=== PATIENT | female | born 1990 | race Two or more races ===

== ENCOUNTER 2017-10-31 13:39 | Inpatient (IN) | payer OTHER ==
[2017-10-31 15:29] VITALS: BMI 23.3
--- NOTE | 2017-10-31 19:56 | HP ---
COWS - Scale Resting Pulse: 2= [place] 101-120 Sweatin= Chills/Flushing Restless Observation: 3= Extraneous Movement Pupil Size: 0= Normal to Room Light Bone or Joint Aches: 1= Mild Discomfort Runny Nose/ Eye Tearin= Runny Nose/Eyes GI Upset > 30mins: 3= Vomiting/Diarrhea Tremor Observation: 1= Tremor [place], Not Seen Yawning Observation: 0= None Anxiety or Irritability: 1=Feels Anxious/Irritable Goose Flesh Skin: 3=Piloerection COWS Score: 17 Admission ROS S - HPI Chief Complaint: " I am here to here get better, I need someone ot belive in me, is the first time I am doing this." Allergies/Adverse Reactions: Allergies Allergy/AdvReac Type Severity Reaction Status Date / Time mushroom Allergy Intermediate Vomiting Verified 10/31/17 17:30 History of Present Illness: 26 yo female with hx of heroin (paranasal) and nicotine dependence. PMHX: asthma , diverticulitis, depression, anxiety, insomnia. Denies hx of seizures or suicide attempts. Denies suicidal / homicidal ideation. Denies hx of suicide attempts. Reports longest period of sobriety 10 months. Reports no prior detox treatment. Exam Limitations: No Limitations - Ebola screening Have you traveled outside of the country in the last 21 days: No Have you had contact with anyone from an Ebola affected area: No Have you been sick,other than usual withdrawal symptoms: No Do you have a fever: No - Review of Systems Constitutional: Chills, Loss of Appetite, Changes in sleep EENT: reports: Throat Pain Respiratory: reports: Cough, Wheezing Cardiac: reports: No Symptoms Reported Neuro: reports: Headache, Dizziness Endocrine: reports: Increased Thirst Hematology: reports: No Symptoms Reported Psychiatric: reports: Orientated x3, Anxious Other Systems: Reviewed and Negative Patient History - Patient Medical History Hx Anemia: No Hx Asthma: Yes Hx Chronic Obstructive Pulmonary Disease (COPD): No Hx Cancer: No Hx Cardiac Disorders: No Hx Congestive Heart Failure: No Hx Hypertension: No Hx Hypercholesterolemia: No Hx Pacemaker: No HX Cerebrovascular Accident: No Hx Seizures: No Hx Dementia: No Hx Diabetes: No Hx Gastrointestinal Disorders: No Hx Liver Disease: No Hx Genitourinary Disorders: No Hx Sexually Transmitted Disorders: No Hx Renal Disease (ESRD): No Hx Thyroid Disease: No Hx Human Immunodeficiency Virus (HIV): No Hx Hepatitis C: No Hx Depression: Yes Hx Suicide Attempt: No Hx Bipolar Disorder: No Hx Schizophrenia: No - Patient Surgical History Past Surgical History: Yes Hx Neurologic Surgery: No Hx Cataract Extraction: No Hx Cardiac Surgery: No Hx Lung Surgery: No Hx Breast Surgery: Yes (BREAST MAS-2007) Hx Breast Biopsy: No Hx Abdominal Surgery: No Hx Appendectomy: No Hx Cholecystectomy: No Hx Genitourinary Surgery: No Hx Section: No Hx Orthopedic Surgery: No Anesthesia Reaction: No - PPD History Previous Implant?: Yes Documented Results: Negative w/o proof PPD to be Administered?: Yes - Reproductive History Patient is a Female of Child Bearing Age (11 -55 yrs old): Yes Last Menstrual Period: 09/26/17 Patient : No - Smoking Cessation Smoking history: Current every day smoker Have you smoked in the past 12 months: Yes Aproximately how many cigarettes per day: 4 Hx Chewing Tobacco Use: No Initiated information on smoking cessation: Yes 'Breaking Loose' booklet given: 10/31/17 - Substance & Tx. History Hx Alcohol Use: No Hx Substance Use: No Substance Use Type: Cocaine, Heroin Hx Substance Use Treatment: No - Substances Abused Heroin Route: Inhalation Frequency: Daily Amount used: 3 BAGS Age of first use: 23 Date of Last Use: 10/29/17 Cocaine Route: Smoking Frequency: Daily Amount used: 1 BAG Age of first use: 26 Date of Last Use: 10/28/17 Family Disease History - Family Disease History Family Disease History: Other: Grandparent (alive, schizo, alcoholism ), Father (alive, alcoholism and diverticulitis ), Mother (alive and well, obesity ) Admission Physical Exam S - Vital Signs Vital Signs: Vital Signs - 24 hr 10/31/17 15:22 Temperature 97.1 F L Pulse Rate 105 H Respiratory 20 Rate Blood Pressure 149/119 - Physical General Appearance: Yes: Appropriately Dressed, Mild Distress, Thin, Sweating, Anxious HEENTM: Yes: EOMI, Hearing grossly Normal, Normal ENT Inspection, Normocephalic , Normal Voice, TAMICA, Pharynx Normal, Tm's normal, Other (chelithis) Respiratory: Yes: Chest Non-Tender, Wheezing, Other (cough) Neck: Yes: No masses,lesions,Nodules, Trachea in good position Breast: Yes: Breast Exam Deferred Cardiology: Yes: Regular Rhythm, Tachycardia Abdominal: Yes: Normal Bowel Sounds, Non Tender, Flat, Soft Genitourinary: Yes: Within Normal Limits Back: Yes: Normal Inspection Musculoskeletal: Yes: Back pain Extremities: Yes: Normal Capillary Refill, Normal Inspection, Normal Range of Motion, Non-Tender 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 NML intact, Fully Oriented, Alert, Motor Strength 5/5, Normal Response, Depressed Affect Integumentary: Yes: Normal Color, Warm, Diaphoresis Lymphatic: Yes: Within Normal Limits - Diagnostic (1) Asthma Current Visit: Yes Status: Acute Qualifiers: Asthma severity: severe Asthma persistence: persistent Asthma complication type: with acute exacerbation Qualified Code(s): J45.51 - Severe persistent asthma with (acute) exacerbation (2) Wheezing Current Visit: Yes Status: Acute (3) Elevated blood pressure reading without diagnosis of hypertension Current Visit: Yes Status: Acute (4) Dehydration Current Visit: Yes Status: Acute (5) Depression Current Visit: Yes Status: Acute Qualifiers: Depression Type: dysthymia Qualified Code(s): F34.1 - Dysthymic disorder (6) Diverticulitis Current Visit: Yes Status: Chronic Cleared for Admission [facility] - Detox or Rehab [facility] Level of Care: Medically Managed Detox Regimen/Protocol: Methadone [facility] Breath Alcohol Content Breath Alcohol Content: 0 Urine Pregancy Test - Result Urine Test Results: Negative- NO Line Present Urine Drug Screen - Results Drug Screen Negative: No Urine Drug Screen Results: KOFFI-Cocaine, OPI-Opiates
[2017-10-31] MEDS ORDERED: ALBUTEROL SO4 18 GM HFA INHALER IH SCH ×2 (20:00→22:00)
[2017-10-31] MEDS ORDERED: MAG HYDROX/AL HYDROX/SIMETH 30 ML UNIT-DOSE CUP PO PRN (20:07)
[2017-10-31] MEDS ORDERED: NICOTINE POLACRILEX 2 MG GUM BC PRN (20:07)
[2017-10-31] MEDS ORDERED: MAGNESIUM HYDROX 2400MG/30ML ORAL SUSPENSION 30 ML CUP PO PRN (20:07)
[2017-10-31] MEDS ORDERED: P-EPHED 60MG/TRIPROLIDI 2.5MG TABLET PO PRN (20:07)
[2017-10-31] MEDS ORDERED: MAGNESIUM CITRATE 300 ML BOTTLE PO PRN (20:07)
[2017-10-31] MEDS ORDERED: METHADONE HCL 10 MG TABLET (FOR DETOX USE ONLY) PO ONE ×2 (20:07→23:00)
[2017-10-31] MEDS ORDERED: LOPERAMIDE HCL 2 MG CAPSULE PO PRN (20:07)
[2017-10-31] MEDS: ALBUTEROL SO4 2.5/IPRATROPIUM 0.5 INH SOL 3 ML VIAL.NEB. NEB SCH (21:16)
[2017-10-31] MEDS: predniSONE 10 MG TABLET (UD) PO SCH (21:40)
[2017-10-31] MEDS: BUDESONIDE/FORMETEROL FUMARATE 160/4.5 mcg INHALER IH SCH (22:31)
[2017-10-31] MEDS: THIAMINE HCL 100 MG TABLET (FP) PO SCH (22:34)
[2017-10-31 23:21] LABS: URINE APPEARANCE CLOUDY; URINE BILIRUBIN NEGATIVE (<2.0 mg/dL); URINE COLOR YELLOW; URINE GLUCOSE (UA) NEGATIVE (NEGATIVE); URINE KETONE NEGATIVE (NEGATIVE); URINE LEUK ESTERASE NEGATIVE (NEGATIVE); URINE NITRITE NEGATIVE (NEGATIVE); URINE PROTEIN NEGATIVE (NEGATIVE); URINE UROBILINOGEN NEGATIVE mg/dL (0.2-1.0)
[2017-11-01] MEDS: ALBUTEROL SO4 2.5/IPRATROPIUM 0.5 INH SOL 3 ML VIAL.NEB. NEB SCH ×5 (00:20→19:48)
[2017-11-01] MEDS: ALBUTEROL SO4 18 GM HFA INHALER IH PRN ×2 (02:59→10:34)
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
[2017-11-01] MEDS ORDERED: METHADONE HCL 10 MG TABLET (FOR DETOX USE ONLY) PO ONE (10:00)
[2017-11-01 10:21] LABS: HEMATOCRIT 42.9 % (32.4-45.2); HEMOGLOBIN 14.5 GM/dL (10.7-15.3); MCH 29.2 pg (25.7-33.7); MCHC 33.8 g/dl (32.0-36.0); MEAN CELL VOLUME 86.4 fl (80-96); MEAN PLT VOLUME 8.9 fl (7.5-11.1); PLATELET COUNT 269 K/MM3 (134-434); RBC 4.96 M/mm3 (3.60-5.2); RDW 12.7 % (11.6-15.6)
[2017-11-01 10:27] LABS: CHLORIDE 104 mmol/L (98-107); POTASSIUM 4.8 mmol/L (3.5-5.1); SODIUM 140 mmol/L (136-145)
[2017-11-01] MEDS: diazePAM 5 MG TABLET PO PRN (10:33)
[2017-11-01] MEDS: PRENATAL VITAMINS W/ FOLIC ACID TABLET (FP) PO SCH (10:33)
[2017-11-01] MEDS: NICOTINE 14 MG/24 HOURS TOPICAL PATCH TD SCH (10:34)
[2017-11-01] MEDS: predniSONE 10 MG TABLET (UD) PO SCH (10:34)
[2017-11-01] MEDS: BUDESONIDE/FORMETEROL FUMARATE 160/4.5 mcg INHALER IH SCH ×2 (10:34→22:22)
[2017-11-01 10:37] LABS: ALBUMIN 3.9 g/dl (3.4-5.0); ALK PHOS 84 U/L (45-117); ANION GAP 10 (8-16); BILIRUBIN,TOTAL 0.4 mg/dL (0.2-1.0); BLOOD UREA NITROGEN 11 mg/dL (7-18); CALCIUM 9.6 mg/dL (8.5-10.1); CO2 26 mmol/L (21-32); CREATININE 0.8 mg/dL (0.55-1.02); GLUCOSE,RANDOM 131 mg/dL (74-106); SGOT/AST 18 U/L (15-37); SGPT/ALT 19 U/L (12-78); TOT PROT 7.3 g/dl (6.4-8.2)
[2017-11-01] MEDS: guaiFENesin/D-METHORPHAN HB 10 ML UNIT-DOSE CUPS PO PRN (10:38)
--- NOTE | 2017-11-01 12:21 | PN ---
[facility] COWS - Scale Resting Pulse: 0= [place] 80 or Below Sweatin= Chills/Flushing Restless Observation: 1= Difficult to Sit Still Pupil Size: 1= Pupils >than Normal Bone or Joint Aches: 2= Severe Diffuse Aches Runny Nose/ Eye Tearin= Runny Nose/Eyes GI Upset > 30mins: 3= Vomiting/Diarrhea Tremor Observation of Outstretched Hands: 2= Slight Tremor Visible Yawning Observation: 1= 1-2x During Session Anxiety or Irritability: 2=Irritable/Anxious Goose Flesh Skin: 0=Smooth Skin COWS Score: 15 S Progress Note (SOAP) Subjective: ALERT,IRRITABLE,ANXIOUS,INTERRUPTED SLEEP,PAIN IN THE BODY AN BACK Objective: 11/01/17 12:17 Vital Signs Temperature 98.1 F 11/01/17 09:37 Pulse Rate 113 H 11/01/17 09:37 Respiratory Rate 16 11/01/17 09:37 Blood Pressure 119/93 11/01/17 09:37 O2 Sat by Pulse Oximetry (%) EKG NSR WITH SINUS ARRHYTHMIA NORMAL ECG PROLONG QT 412/431 NO CHEST PAIN,NO SOB,NO DIZZINESS Laboratory Last Values WBC 9.0 K/mm3 (4.0-10.0) 11/01/17 07:00 RBC 4.96 M/mm3 (3.60-5.2) 11/01/17 07:00 Hgb 14.5 GM/dL (10.7-15.3) 11/01/17 07:00 Hct 42.9 % (32.4-45.2) 11/01/17 07:00 MCV 86.4 fl (80-96) 11/01/17 07:00 MCH 29.2 pg (25.7-33.7) 11/01/17 07:00 MCHC 33.8 g/dl (32.0-36.0) 11/01/17 07:00 RDW 12.7 % (11.6-15.6) 11/01/17 07:00 Plt Count 269 K/MM3 (134-434) 11/01/17 07:00 MPV 8.9 fl (7.5-11.1) 11/01/17 07:00 Sodium 140 mmol/L (136-145) 11/01/17 07:00 Potassium 4.8 mmol/L (3.5-5.1) 11/01/17 07:00 Chloride 104 mmol/L (98-107) 11/01/17 07:00 Carbon Dioxide 26 mmol/L (21-32) 11/01/17 07:00 Anion Gap 10 (8-16) 11/01/17 07:00 BUN 11 mg/dL (7-18) 11/01/17 07:00 Creatinine 0.8 mg/dL (0.55-1.02) 11/01/17 07:00 Creat Clearance w eGFR > 60 (>60) 11/01/17 07:00 Random Glucose 131 mg/dL (74-106) H 11/01/17 07:00 Calcium 9.6 mg/dL (8.5-10.1) 11/01/17 07:00 Total Bilirubin 0.4 mg/dL (0.2-1.0) 11/01/17 07:00 AST 18 U/L (15-37) 11/01/17 07:00 ALT 19 U/L (12-78) 11/01/17 07:00 Alkaline Phosphatase 84 U/L (45-117) 11/01/17 07:00 Total Protein 7.3 g/dl (6.4-8.2) 11/01/17 07:00 Albumin 3.9 g/dl (3.4-5.0) 11/01/17 07:00 Urine Color Yellow 10/31/17 23:00 Urine Appearance Cloudy 10/31/17 23:00 Urine pH 7.0 (5.0-8.0) 10/31/17 23:00 Ur Specific [place] 1.019 (1.001-1.035) 10/31/17 23:00 Urine Protein Negative (NEGATIVE) 10/31/17 23:00 Urine Glucose (UA) Negative (NEGATIVE) 10/31/17 23:00 Urine Ketones Negative (NEGATIVE) 10/31/17 23:00 Urine Blood Negative (NEGATIVE) 10/31/17 23:00 Urine Nitrite Negative (NEGATIVE) 10/31/17 23:00 Urine Bilirubin Negative (<2.0 mg/dL) 10/31/17 23:00 Urine Urobilinogen Negative mg/dL (0.2-1.0) 10/31/17 23:00 Ur Leukocyte Esterase Negative (NEGATIVE) 10/31/17 23:00 RPR Titer Nonreactive (NONREACTIVE) 11/01/17 07:00 Assessment: 11/01/17 12:20 WITHDRAWAL SYMPTOM Plan: CONTINUE DETOX
[2017-11-01] MEDS: IBUPROFEN 400 MG TABLET (FP) PO PRN (15:21)
[2017-11-01] MEDS: MENTHOL/PHENOL 1 EACH UD MM PRN (15:22)
[2017-11-01] MEDS: THIAMINE HCL 100 MG TABLET (FP) PO SCH (22:22)
[2017-11-01] MEDS: cloNIDine HCL 0.1 MG TABLET PO SCH (22:22)
[2017-11-01] MEDS: CYCLOBENZAPRINE HCL 10 MG TABLET (FP) PO PRN (22:22)
[2017-11-01] MEDS: MELATONIN 5 MG TABLETS PO PRN (22:23)
[2017-11-01] MEDS: hydrOXYzine PAMOATE 50 MG CAPSULE (FP) PO PRN (22:25)
[2017-11-02] MEDS: ALBUTEROL SO4 2.5/IPRATROPIUM 0.5 INH SOL 3 ML VIAL.NEB. NEB SCH ×6 (00:30→20:50)
[2017-11-02] MEDS: guaiFENesin/D-METHORPHAN HB 10 ML UNIT-DOSE CUPS PO PRN ×2 (03:49→10:22)
--- NOTE | 2017-11-02 08:23 | EKG ---
Test Reason : Blood Pressure : / mmHG Vent. Rate : 066 BPM Atrial Rate : 066 BPM P-R Int : 132 ms QRS Dur : 088 ms QT Int : 412 ms P-R-T Axes : 062 060 033 degrees QTc Int : 431 ms NORMAL SINUS RHYTHM WITH SINUS ARRHYTHMIA NORMAL ECG NO PREVIOUS ECGS AVAILABLE Confirmed by KELECHI CATALAN MD ([id number]) on 11/02/2017 8:23:14 AM Referred By: Confirmed By:KELECHI CATALAN MD
[2017-11-02] MEDS ORDERED: METHADONE HCL 5 MG TABLET (FOR DETOX USE ONLY) PO ONE (10:00)
[2017-11-02] MEDS: diazePAM 5 MG TABLET PO PRN (10:20)
[2017-11-02] MEDS: CYCLOBENZAPRINE HCL 10 MG TABLET (FP) PO PRN (10:20)
[2017-11-02] MEDS: cloNIDine HCL 0.1 MG TABLET PO SCH ×2 (10:20→22:29)
[2017-11-02] MEDS: PRENATAL VITAMINS W/ FOLIC ACID TABLET (FP) PO SCH (10:20)
[2017-11-02] MEDS: NICOTINE 14 MG/24 HOURS TOPICAL PATCH TD SCH (10:21)
[2017-11-02] MEDS: BUDESONIDE/FORMETEROL FUMARATE 160/4.5 mcg INHALER IH SCH ×2 (10:21→22:29)
[2017-11-02] MEDS: predniSONE 10 MG TABLET (UD) PO SCH (10:21)
--- NOTE | 2017-11-02 13:28 | PN ---
[facility] COWS - Scale Resting Pulse: 0= [place] 80 or Below Sweatin= Chills/Flushing Restless Observation: 3= Extraneous Movement Pupil Size: 1= Pupils >than Normal Bone or Joint Aches: 2= Severe Diffuse Aches Runny Nose/ Eye Tearin= Runny Nose/Eyes GI Upset > 30mins: 2= Nausea/Diarrhea Tremor Observation of Outstretched Hands: 2= Slight Tremor Visible Yawning Observation: 1= 1-2x During Session Anxiety or Irritability: 2=Irritable/Anxious Goose Flesh Skin: 0=Smooth Skin COWS Score: 16 S Progress Note (SOAP) Subjective: ALERT,IRRITABLE,ANXIOUS,INTERRUPTED SLEEP,PAIN IN THE BODY AND BACK Objective: 11/02/17 13:27 Vital Signs Temperature 97.1 F L 11/02/17 09:24 Pulse Rate 65 11/02/17 09:24 Respiratory Rate 16 11/02/17 09:24 Blood Pressure 106/58 11/02/17 09:24 O2 Sat by Pulse Oximetry (%) 11/02/17 13:27 Laboratory Last Values WBC 9.0 K/mm3 (4.0-10.0) 11/01/17 07:00 RBC 4.96 M/mm3 (3.60-5.2) 11/01/17 07:00 Hgb 14.5 GM/dL (10.7-15.3) 11/01/17 07:00 Hct 42.9 % (32.4-45.2) 11/01/17 07:00 MCV 86.4 fl (80-96) 11/01/17 07:00 MCH 29.2 pg (25.7-33.7) 11/01/17 07:00 MCHC 33.8 g/dl (32.0-36.0) 11/01/17 07:00 RDW 12.7 % (11.6-15.6) 11/01/17 07:00 Plt Count 269 K/MM3 (134-434) 11/01/17 07:00 MPV 8.9 fl (7.5-11.1) 11/01/17 07:00 Sodium 140 mmol/L (136-145) 11/01/17 07:00 Potassium 4.8 mmol/L (3.5-5.1) 11/01/17 07:00 Chloride 104 mmol/L (98-107) 11/01/17 07:00 Carbon Dioxide 26 mmol/L (21-32) 11/01/17 07:00 Anion Gap 10 (8-16) 11/01/17 07:00 BUN 11 mg/dL (7-18) 11/01/17 07:00 Creatinine 0.8 mg/dL (0.55-1.02) 11/01/17 07:00 Creat Clearance w eGFR > 60 (>60) 11/01/17 07:00 Random Glucose 131 mg/dL (74-106) H 11/01/17 07:00 Calcium 9.6 mg/dL (8.5-10.1) 11/01/17 07:00 Total Bilirubin 0.4 mg/dL (0.2-1.0) 11/01/17 07:00 AST 18 U/L (15-37) 11/01/17 07:00 ALT 19 U/L (12-78) 11/01/17 07:00 Alkaline Phosphatase 84 U/L (45-117) 11/01/17 07:00 Total Protein 7.3 g/dl (6.4-8.2) 11/01/17 07:00 Albumin 3.9 g/dl (3.4-5.0) 11/01/17 07:00 Urine Color Yellow 10/31/17 23:00 Urine Appearance Cloudy 10/31/17 23:00 Urine pH 7.0 (5.0-8.0) 10/31/17 23:00 Ur Specific [place] 1.019 (1.001-1.035) 10/31/17 23:00 Urine Protein Negative (NEGATIVE) 10/31/17 23:00 Urine Glucose (UA) Negative (NEGATIVE) 10/31/17 23:00 Urine Ketones Negative (NEGATIVE) 10/31/17 23:00 Urine Blood Negative (NEGATIVE) 10/31/17 23:00 Urine Nitrite Negative (NEGATIVE) 10/31/17 23:00 Urine Bilirubin Negative (<2.0 mg/dL) 10/31/17 23:00 Urine Urobilinogen Negative mg/dL (0.2-1.0) 10/31/17 23:00 Ur Leukocyte Esterase Negative (NEGATIVE) 10/31/17 23:00 RPR Titer Nonreactive (NONREACTIVE) 11/01/17 07:00 Assessment: 11/02/17 13:27 WITHDRAWAL SYMPTOM Plan: CONTINUE DETOX
[2017-11-02] MEDS: ARTIFICIAL TEARS (POLYVINYL ALCOHOL 1.4%) OPTH DROPS OU SCH ×2 (15:23→22:29)
[2017-11-02] MEDS: THIAMINE HCL 100 MG TABLET (FP) PO SCH (22:29)
[2017-11-02] MEDS: hydrOXYzine PAMOATE 50 MG CAPSULE (FP) PO PRN (22:31)
[2017-11-02] MEDS: MELATONIN 5 MG TABLETS PO PRN (22:31)
[2017-11-02] MEDS: ALBUTEROL SO4 18 GM HFA INHALER IH PRN (22:31)
[2017-11-03] MEDS: ALBUTEROL SO4 2.5/IPRATROPIUM 0.5 INH SOL 3 ML VIAL.NEB. NEB SCH ×5 (00:33→20:55)
[2017-11-03] MEDS: diazePAM 5 MG TABLET PO PRN ×2 (05:57→11:11)
[2017-11-03] MEDS: IBUPROFEN 400 MG TABLET (FP) PO PRN (05:57)
[2017-11-03] MEDS: ARTIFICIAL TEARS (POLYVINYL ALCOHOL 1.4%) OPTH DROPS OU SCH ×3 (06:02→22:21)
[2017-11-03] MEDS ORDERED: METHADONE HCL 5 MG TABLET (FOR DETOX USE ONLY) PO ONE (10:00)
[2017-11-03] MEDS: cloNIDine HCL 0.1 MG TABLET PO SCH ×2 (11:11→22:20)
[2017-11-03] MEDS: PRENATAL VITAMINS W/ FOLIC ACID TABLET (FP) PO SCH (11:11)
[2017-11-03] MEDS: BUDESONIDE/FORMETEROL FUMARATE 160/4.5 mcg INHALER IH SCH ×2 (11:12→22:21)
[2017-11-03] MEDS: ALBUTEROL SO4 18 GM HFA INHALER IH PRN (11:12)
[2017-11-03] MEDS: NICOTINE 14 MG/24 HOURS TOPICAL PATCH TD SCH (11:12)
[2017-11-03] MEDS: ACETAMINOPHEN 325 MG TABLET (FP) PO PRN ×2 (11:13→18:07)
--- NOTE | 2017-11-03 14:08 | PN ---
[facility] Progress Note (SOAP) Subjective: Sweating, nausea, interrupted sleep Objective: 11/03/17 14:05 Last Vital Signs Temp Pulse Resp BP Pulse Ox 97.7 F 88 20 119/77 11/03/17 13:56 11/03/17 13:56 11/03/17 13:56 11/03/17 13:56 Laboratory Tests 10/31/17 11/01/17 11/01/17 23:00 07:00 07:00 WBC 9.0 RBC 4.96 Hgb 14.5 Hct 42.9 MCV 86.4 MCH 29.2 MCHC 33.8 RDW 12.7 Plt Count 269 MPV 8.9 Sodium 140 Potassium 4.8 Chloride 104 Carbon Dioxide 26 Anion Gap 10 BUN 11 Creatinine 0.8 Creat Clearance w eGFR > 60 Random Glucose 131 H Calcium 9.6 Total Bilirubin 0.4 AST 18 ALT 19 Alkaline Phosphatase 84 Total Protein 7.3 Albumin 3.9 Urine Color Yellow Urine Appearance Cloudy Urine pH 7.0 Ur Specific [place] 1.019 Urine Protein Negative Urine Glucose (UA) Negative Urine Ketones Negative Urine Blood Negative Urine Nitrite Negative Urine Bilirubin Negative Urine Urobilinogen Negative Ur Leukocyte Esterase Negative RPR Titer 11/01/17 07:00 WBC RBC Hgb Hct MCV MCH MCHC RDW Plt Count MPV Sodium Potassium Chloride Carbon Dioxide Anion Gap BUN Creatinine Creat Clearance w eGFR Random Glucose Calcium Total Bilirubin AST ALT Alkaline Phosphatase Total Protein Albumin Urine Color Urine Appearance Urine pH Ur Specific [place] Urine Protein Urine Glucose (UA) Urine Ketones Urine Blood Urine Nitrite Urine Bilirubin Urine Urobilinogen Ur Leukocyte Esterase RPR Titer Nonreactive Labs reviewed Assessment: 11/03/17 14:05 Withdrawal symptoms Plan: Continue detox Encouraged PO hydration (water)
[2017-11-03] MEDS: MENTHOL/PHENOL 1 EACH UD MM PRN (15:43)
[2017-11-03] MEDS: guaiFENesin/D-METHORPHAN HB 10 ML UNIT-DOSE CUPS PO PRN (18:07)
[2017-11-03] MEDS: THIAMINE HCL 100 MG TABLET (FP) PO SCH (22:20)
[2017-11-03] MEDS: MELATONIN 5 MG TABLETS PO PRN (22:23)
[2017-11-04] MEDS: ARTIFICIAL TEARS (POLYVINYL ALCOHOL 1.4%) OPTH DROPS OU SCH ×3 (06:59→22:25)
[2017-11-04] MEDS: ALBUTEROL SO4 2.5/IPRATROPIUM 0.5 INH SOL 3 ML VIAL.NEB. NEB SCH ×5 (06:59→22:25)
--- NOTE | 2017-11-04 09:36 | PN ---
S Progress Note (SOAP) Subjective: ALERT,IRRITABLE,ANXIOUS,INTERRUPTED SLEEP, Objective: 11/04/17 09:36 Vital Signs Temperature 97.5 F L 11/04/17 07:13 Pulse Rate 80 11/04/17 07:13 Respiratory Rate 16 11/04/17 07:13 Blood Pressure 106/72 11/04/17 07:13 O2 Sat by Pulse Oximetry (%) Assessment: 11/04/17 09:36 WITHDRAWAL SYMPTOM Plan: CONTINUE DETOX,DISCHARGE IN AM
[2017-11-04] MEDS ORDERED: METHADONE HCL 10 MG TABLET (FOR DETOX USE ONLY) PO ONE (10:00)
[2017-11-04] MEDS: PRENATAL VITAMINS W/ FOLIC ACID TABLET (FP) PO SCH (10:27)
[2017-11-04] MEDS: BUDESONIDE/FORMETEROL FUMARATE 160/4.5 mcg INHALER IH SCH ×2 (10:27→22:39)
[2017-11-04] MEDS: NICOTINE 14 MG/24 HOURS TOPICAL PATCH TD SCH (10:27)
[2017-11-04] MEDS: cloNIDine HCL 0.1 MG TABLET PO SCH ×2 (10:27→22:09)
[2017-11-04] MEDS: IBUPROFEN 400 MG TABLET (FP) PO PRN ×2 (10:30→22:23)
[2017-11-04] MEDS: THIAMINE HCL 100 MG TABLET (FP) PO SCH (22:09)
[2017-11-04] MEDS: MELATONIN 5 MG TABLETS PO PRN (22:10)
[2017-11-04] MEDS: guaiFENesin/D-METHORPHAN HB 10 ML UNIT-DOSE CUPS PO PRN (22:24)
[2017-11-05] MEDS: ALBUTEROL SO4 2.5/IPRATROPIUM 0.5 INH SOL 3 ML VIAL.NEB. NEB SCH ×3 (00:30→08:30)
[2017-11-05] MEDS: IBUPROFEN 400 MG TABLET (FP) PO PRN (05:43)
[2017-11-05] MEDS: ARTIFICIAL TEARS (POLYVINYL ALCOHOL 1.4%) OPTH DROPS OU SCH (05:54)
[2017-11-05] MEDS ORDERED: METHADONE HCL 5 MG TABLET (FOR DETOX USE ONLY) PO ONE (06:00)
[2017-11-05 08:47] VITALS: BP 115/61; PULSE 99; TEMP 97.7
--- NOTE | 2017-11-05 08:57 | PN ---
S Progress Note (SOAP) Subjective: ALERT,NO COMPLAINT Objective: 11/05/17 08:54 Vital Signs Temperature 97.7 F 11/05/17 08:47 Pulse Rate 99 H 11/05/17 08:47 Respiratory Rate 18 11/05/17 08:47 Blood Pressure 115/61 11/05/17 08:47 O2 Sat by Pulse Oximetry (%) Assessment: 11/05/17 08:54 DETOX COMPLETED,NO WITHDRAWAL SYMPTOM Plan: DISCHARGE TODAY,FOLLOW UP WITH AFTER CARE PROGRAM ARRANGEMENT
--- NOTE | 2017-11-05 09:02 | DS ---
[facility] Detox Discharge Summary Admission Date: 10/31/17 Discharge Date: 11/05/17 - History Present History: Cocaine Dependence, Opioid Dependence Additional Comments: FOLLOW UP WITH AFTER CARE PROGRAM ARRANGEMENT Pertinent Past History: ASTHMA DEHYDRATION HISTORY OF DIVERTICULITIS - Physical Exam Results Vital Signs: Vital Signs Temperature 97.7 F 11/05/17 08:47 Pulse Rate 99 H 11/05/17 08:47 Respiratory Rate 18 11/05/17 08:47 Blood Pressure 115/61 11/05/17 08:47 O2 Sat by Pulse Oximetry (%) Pertinent Admission Physical Exam Findings: WITHDRAWAL SYMPTOM AND SIGN Vital Signs Temperature 97.7 F 11/05/17 08:47 Pulse Rate 99 H 11/05/17 08:47 Respiratory Rate 18 11/05/17 08:47 Blood Pressure 115/61 11/05/17 08:47 O2 Sat by Pulse Oximetry (%) Laboratory Last Values WBC 9.0 K/mm3 (4.0-10.0) 11/01/17 07:00 RBC 4.96 M/mm3 (3.60-5.2) 11/01/17 07:00 Hgb 14.5 GM/dL (10.7-15.3) 11/01/17 07:00 Hct 42.9 % (32.4-45.2) 11/01/17 07:00 MCV 86.4 fl (80-96) 11/01/17 07:00 MCH 29.2 pg (25.7-33.7) 11/01/17 07:00 MCHC 33.8 g/dl (32.0-36.0) 11/01/17 07:00 RDW 12.7 % (11.6-15.6) 11/01/17 07:00 Plt Count 269 K/MM3 (134-434) 11/01/17 07:00 MPV 8.9 fl (7.5-11.1) 11/01/17 07:00 Sodium 140 mmol/L (136-145) 11/01/17 07:00 Potassium 4.8 mmol/L (3.5-5.1) 11/01/17 07:00 Chloride 104 mmol/L (98-107) 11/01/17 07:00 Carbon Dioxide 26 mmol/L (21-32) 11/01/17 07:00 Anion Gap 10 (8-16) 11/01/17 07:00 BUN 11 mg/dL (7-18) 11/01/17 07:00 Creatinine 0.8 mg/dL (0.55-1.02) 11/01/17 07:00 Creat Clearance w eGFR > 60 (>60) 11/01/17 07:00 Random Glucose 131 mg/dL (74-106) H 11/01/17 07:00 Calcium 9.6 mg/dL (8.5-10.1) 11/01/17 07:00 Total Bilirubin 0.4 mg/dL (0.2-1.0) 11/01/17 07:00 AST 18 U/L (15-37) 11/01/17 07:00 ALT 19 U/L (12-78) 11/01/17 07:00 Alkaline Phosphatase 84 U/L (45-117) 11/01/17 07:00 Total Protein 7.3 g/dl (6.4-8.2) 11/01/17 07:00 Albumin 3.9 g/dl (3.4-5.0) 11/01/17 07:00 Urine Color Yellow 10/31/17 23:00 Urine Appearance Cloudy 10/31/17 23:00 Urine pH 7.0 (5.0-8.0) 10/31/17 23:00 Ur Specific [place] 1.019 (1.001-1.035) 10/31/17 23:00 Urine Protein Negative (NEGATIVE) 10/31/17 23:00 Urine Glucose (UA) Negative (NEGATIVE) 10/31/17 23:00 Urine Ketones Negative (NEGATIVE) 10/31/17 23:00 Urine Blood Negative (NEGATIVE) 10/31/17 23:00 Urine Nitrite Negative (NEGATIVE) 10/31/17 23:00 Urine Bilirubin Negative (<2.0 mg/dL) 10/31/17 23:00 Urine Urobilinogen Negative mg/dL (0.2-1.0) 10/31/17 23:00 Ur Leukocyte Esterase Negative (NEGATIVE) 10/31/17 23:00 RPR Titer Nonreactive (NONREACTIVE) 11/01/17 07:00 - Treatment Hospital Course: Detox Protocol Followed, Detoxed Safely, Responded well, Discharged Condition Good Patient has Accepted a Rehab Referral to: DECLINED - Medication Discharge Medications: Ambulatory Orders Albuterol 2.5/Ipratropium 0.5 [Duoneb -] 1 neb NEB Q4H 10/31/17 Albuterol Sulfate Inhaler - [Ventolin Hfa Inhaler -] 1 - 2 inh PO QID 10/31/17 Amitriptyline HCl [Elavil -] 25 mg PO DAILY 10/31/17 Budesonide/Formeterol Fumarate [SYMBICORT 160/4.5mcg -] 1 inh PO BID 10/31/17 Desvenlafaxine Succinate [Pristiq ER] 25 mg PO BID 10/31/17 Lamotrigine [Lamictal -] 150 mg PO BID 10/31/17 - Diagnosis (1) Opioid withdrawal Current Visit: Yes Status: Acute (2) Asthma Current Visit: Yes Status: Chronic Qualifiers: Asthma severity: mild Asthma persistence: intermittent Asthma complication type: uncomplicated Qualified Code(s): J45.20 - Mild intermittent asthma, uncomplicated (3) Cocaine dependence Current Visit: Yes Status: Chronic (4) Dehydration Current Visit: Yes Status: Acute (5) Diverticulitis Current Visit: Yes Status: Chronic - AMA Did Patient Leave Against Medical Advice: No
== END 2017-11-05 09:29 | disposition home or self-care (01) | DRG 773 ==
LOC: YASAS 13:39 → Y6N 17:22
PROVIDERS: ADMIT Surgery; ATTEND Surgery
PROC: HZ2ZZZZ Detoxification Services for Substance Abuse Treatment (ICD-10-PCS; principal; 2017-10-31)
DX: F11.23 Opioid dependence with withdrawal (principal); F14.20 Cocaine dependence, uncomplicated; F34.1 Dysthymic disorder; F19.24 Other psychoactive substance dependence with psychoactive substance-induced mood disorder; E86.0 Dehydration; J45.20 Mild intermittent asthma, uncomplicated; Z87.19 Personal history of other diseases of the digestive system
CPT/HCPCS: 36415; 80053; 81003; 85027; 86593; 93005; 93010; 94640; J0735; J7620

== ENCOUNTER 2018-04-08 14:11 | Inpatient (IN) | payer OTHER ==
[2018-04-08 16:24] VITALS: BMI 24.8
--- NOTE | 2018-04-08 17:56 | HP ---
"COWS - Scale Resting Pulse: 1= [place] 81-100 Sweatin=Flushed/Facial Moisture Restless Observation: 3= Extraneous Movement Pupil Size: 2= Moderately Dilated (Pupils = 4 mm) Bone or Joint Aches: 2= Severe Diffuse Aches Runny Nose/ Eye Tearin= Runny Nose/Eyes GI Upset > 30mins: 0= None Tremor Observation: 4= Gross Tremor/Twitching Yawning Observation: 0= None Anxiety or Irritability: 2=Irritable/Anxious Goose Flesh Skin: 0=Smooth Skin COWS Score: 18 Admission [facility] Chief Complaint: Heroin withdrawal. Allergies/Adverse Reactions: Allergies Allergy/AdvReac Type Severity Reaction Status Date / Time mushroom Allergy Intermediate Vomiting Verified 04/08/18 18:15 No Known Drug Allergies Allergy Verified 04/08/18 18:38 History of Present Illness: I need help to detox from heroin. Heroin use began at age 23. (Sniffs and smokes) Cocaine/crack began at age 14. - started smoking at age 26. Denies hx blackouts/seizures. Denies alcohol use. Longest length of sobriety 1 month. Hx asthma - last attack 1 week ago manifested by wheezing/cough - resolved w/ neb tx, and prednisone. Hx manic-depression - not currently seeing a psychiatrist. Search Terms: Lazara Vasu, 1990 Search Date: 04/08/2018 06:10:43 PM The Drug Utilization Report below displays all of the controlled substance prescriptions, if any, that your patient has filled in the last twelve months. The information displayed on this report is compiled from pharmacy submissions to the Department, and accurately reflects the information as submitted by the pharmacies. This report was requested by: Salma Key | Reference #: [id number] There are no results for the search terms that you entered. Exam Limitations: No Limitations - Ebola screening Have you traveled outside of the country in the last 21 days: No (N) Have you had contact with anyone from an Ebola affected area: No Have you been sick,other than usual withdrawal symptoms: No Do you have a fever: No - Review of Systems Constitutional: Changes in sleep (Takes trazodone for sleep -) EENT: reports: Blurred Vision (Wears glasses), Dental Problems (Missing a few teeth. Chews and swallows ok.), Other (Runny nose) Respiratory: reports: No Symptoms reported, Other (Hx asthma -) Cardiac: reports: Other GI: reports: No Symptoms Reported : reports: No Symptoms Reported Musculoskeletal: reports: Joint Pain (r/t withdrawal) Integumentary: reports: No Symptoms Reported Neuro: reports: Tremors (r/t withdrawal) Endocrine: reports: No Symptoms Reported Hematology: reports: No Symptoms Reported Psychiatric: reports: Judgement Intact, Orientated x3, Agitated, Anxious, Depressed (Denies thoughts of harming self or others.) Patient History - Patient Medical History Hx Anemia: No Hx Asthma: Yes (on meds - exacerbation 1 week ago) Hx Chronic Obstructive Pulmonary Disease (COPD): No Hx Cancer: No Hx Cardiac Disorders: No Hx Congestive Heart Failure: No Hx Hypertension: Yes (Take Clonidine for HTN - takes 1-2 x /wk) Hx Hypercholesterolemia: No Hx Pacemaker: No HX Cerebrovascular Accident: No Hx Seizures: No Hx Dementia: No Hx Diabetes: No Hx Gastrointestinal Disorders: No Hx Liver Disease: No Hx Genitourinary Disorders: No Hx Sexually Transmitted Disorders: No Hx Renal Disease (ESRD): No Hx Thyroid Disease: No Hx Human Immunodeficiency Virus (HIV): No (2018 - neg) Hx Hepatitis C: No Hx Depression: Yes (Denies suicide or violent ideation) Hx Suicide Attempt: No Hx Bipolar Disorder: No Hx Schizophrenia: No - Patient Surgical History Past Surgical History: Yes Hx Neurologic Surgery: No Hx Cataract Extraction: No Hx Cardiac Surgery: No Hx Lung Surgery: No Hx Breast Surgery: Yes (BREAST [place]ASS-2007) Hx Breast Biopsy: No Hx Abdominal Surgery: No Hx Appendectomy: No Hx Cholecystectomy: No Hx Genitourinary Surgery: No Hx Section: No Hx Orthopedic Surgery: No Anesthesia Reaction: No - PPD History Previous Implant?: Yes Documented Results: Negative w/proof Implanted On Prior R Admission?: Yes Date: 11/02/17 PPD to be Administered?: No - Reproductive History Patient is a Female of Child Bearing Age (11 -55 yrs old): Yes Last Menstrual Period: 09/26/17 (irregular/ not sexually active) Patient : No - Smoking Cessation Smoking history: Current every day smoker Have you smoked in the past 12 months: Yes Aproximately how many cigarettes per day: 5 Hx Chewing Tobacco Use: No Initiated information on smoking cessation: Yes 'Breaking Loose' booklet given: 04/15/18 - Substance & Tx. History Hx Alcohol Use: No Hx Substance Use: Yes Substance Use Type: Cocaine, Heroin Hx Substance Use Treatment: Yes (detox, rehab ) - Substances Abused Heroin Route: Smoking (and sniff) Frequency: Daily Amount used: 5 bags Age of first use: 23 Date of Last Use: 04/08/18 Cocaine Route: Smoking Frequency: 1-3 times last 30 days Amount used: $20 Age of first use: 14 Date of Last Use: 04/01/18 Family Disease History - Family Disease History Family Disease History: Other: Grandparent (alive, schizo, alcoholism ), Father (alive, alcoholism and diverticulitis ), Mother (alive and well, obesity ) Admission Physical Exam [facility] - Vital Signs Vital Signs: Vital Signs - 24 hr 04/08/18 16:21 Temperature 97.0 F L Pulse Rate 93 H Respiratory 20 Rate Blood Pressure 113/75 - Physical General Appearance: Yes: Mild Distress, Tremorous, Irritable, Sweating, Anxious HEENTM: Yes: EOMI, Hearing grossly Normal, Normocephalic, Normal Voice, TAMICA ( Pupils = 4 mm) Respiratory: Yes: No Respiratory Distress, Wheezing (Bilateral insp/exp wheeze. 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 NML intact, Fully Oriented, Alert, Motor Strength 5/5, Normal Mood/Affect, Normal Response Integumentary: Yes: Normal Color, Dry, Warm Lymphatic: Yes: Within Normal Limits - Diagnostic (1) Dehydration Current Visit: Yes Status: Acute (2) Opioid withdrawal Current Visit: Yes Status: Acute (3) Asthma Current Visit: Yes Status: Acute Qualifiers: Asthma severity: mild Asthma persistence: intermittent Asthma complication type: with acute exacerbation Qualified Code(s): J45.21 - Mild intermittent asthma with (acute) exacerbation (4) Cocaine dependence Current Visit: Yes Status: Chronic Qualifiers: Substance use status: uncomplicated Qualified Code(s): F14.20 - Cocaine dependence, uncomplicated (5) Nicotine abuse Current Visit: Yes Status: Chronic BHS Breath Alcohol Content Breath Alcohol Content: 0 Urine Pregancy Test - Result Urine Test Results: Negative- NO Line Present Urine Drug Screen - Results Drug Screen Negative: No Urine Drug Screen Results: OPI-Opiates"
[2018-04-08] MEDS ORDERED: MENTHOL/PHENOL 1 EACH UD MM PRN (18:28)
[2018-04-08] MEDS ORDERED: IBUPROFEN 400 MG TABLET (FP) PO PRN (18:28)
[2018-04-08] MEDS ORDERED: MAG HYDROX/AL HYDROX/SIMETH 30 ML UNIT-DOSE CUP PO PRN (18:28)
[2018-04-08] MEDS ORDERED: NICOTINE POLACRILEX 2 MG GUM BC PRN (18:28)
[2018-04-08] MEDS ORDERED: LOPERAMIDE HCL 2 MG CAPSULE PO PRN (18:28)
[2018-04-08] MEDS ORDERED: guaiFENesin/D-METHORPHAN HB 10 ML UNIT-DOSE CUPS PO PRN (18:28)
[2018-04-08] MEDS ORDERED: MAGNESIUM CITRATE 300 ML BOTTLE PO PRN (18:28)
[2018-04-08] MEDS ORDERED: P-EPHED 60MG/TRIPROLIDI 2.5MG TABLET PO PRN (18:28)
[2018-04-08] MEDS ORDERED: ACETAMINOPHEN 325 MG TABLET (FP) PO PRN (18:28)
[2018-04-08] MEDS ORDERED: MAGNESIUM HYDROX 2400MG/30ML ORAL SUSPENSION 30 ML CUP PO PRN (18:28)
[2018-04-08] MEDS ORDERED: METHADONE HCL 10 MG TABLET (FOR DETOX USE ONLY) PO ONE ×2 (19:00→23:00)
[2018-04-08] MEDS: ALBUTEROL SO4 2.5/IPRATROPIUM 0.5 INH SOL 3 ML VIAL.NEB. NEB SCH (21:30)
[2018-04-08] MEDS ORDERED: MELATONIN 5 MG TABLETS PO PRN (22:00)
[2018-04-08] MEDS: methylPREDNISolone 4 MG TABLET PO SCH ×2 (22:45→22:48)
[2018-04-08] MEDS: THIAMINE HCL 100 MG TABLET (FP) PO SCH (22:45)
[2018-04-08] MEDS: diazePAM 5 MG TABLET PO PRN (22:46)
[2018-04-08] MEDS: BUDESONIDE/FORMETEROL FUMARATE 160/4.5 mcg INHALER IH SCH (22:46)
[2018-04-08] MEDS: guaiFENesin 200 MG/10 ML 10 ML UNIT-DOSE CUPS PO SCH (22:50)
[2018-04-09] MEDS: guaiFENesin 200 MG/10 ML 10 ML UNIT-DOSE CUPS PO SCH ×5 (01:00→23:47)
[2018-04-09] MEDS: methylPREDNISolone 4 MG TABLET PO SCH ×3 (06:47→23:20)
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
[2018-04-09] MEDS: ALBUTEROL SO4 2.5/IPRATROPIUM 0.5 INH SOL 3 ML VIAL.NEB. NEB SCH ×4 (08:58→21:15)
[2018-04-09] MEDS ORDERED: METHADONE HCL 10 MG TABLET (FOR DETOX USE ONLY) PO ONE (10:00)
--- NOTE | 2018-04-09 10:45 | PN ---
BHS COWS - Scale Resting Pulse: 0= [place] 80 or Below Sweatin= Chills/Flushing Restless Observation: 1= Difficult to Sit Still Pupil Size: 1= Pupils >than Normal Bone or Joint Aches: 2= Severe Diffuse Aches Runny Nose/ Eye Tearin= Nasal Congestion GI Upset > 30mins: 2= Nausea/Diarrhea Tremor Observation of Outstretched Hands: 2= Slight Tremor Visible Yawning Observation: 2= >3x During Session Anxiety or Irritability: 2=Irritable/Anxious Goose Flesh Skin: 0=Smooth Skin COWS Score: 14 BHS Progress Note (SOAP) Subjective: sweat tremor body ache muscle cramp restlessness Objective: 04/09/18 10:46 Vital Signs Temperature 98.0 F 04/09/18 10:01 Pulse Rate 56 L 04/09/18 10:01 Respiratory Rate 18 04/09/18 10:01 Blood Pressure 118/65 04/09/18 10:01 O2 Sat by Pulse Oximetry (%) lab pending Assessment: 04/09/18 10:46 withdrawal sx Plan: continue detox
[2018-04-09 10:46] LABS: HEMATOCRIT 46.3 % (32.4-45.2); HEMOGLOBIN 14.8 GM/dL (10.7-15.3); MCH 27.6 pg (25.7-33.7); MCHC 32.1 g/dl (32.0-36.0); MEAN CELL VOLUME 86.2 fl (80-96); MEAN PLT VOLUME 9.6 fl (7.5-11.1); PLATELET COUNT 254 K/MM3 (134-434); RBC 5.37 M/mm3 (3.60-5.2); RDW 12.3 % (11.6-15.6); WHITE BLOOD COUNT 9.7 K/mm3 (4.0-10.0)
[2018-04-09] MEDS: BENZTROPINE MESYLATE 1 MG TABLET (FP) PO SCH ×2 (11:01→23:25)
[2018-04-09] MEDS: AMITRIPTYLINE HCL 25 MG TABLET (FP) PO SCH (11:02)
[2018-04-09] MEDS: risperiDONE 0.5 MG TABLET (FP) PO SCH ×2 (11:02→23:19)
[2018-04-09] MEDS: PRENATAL VITAMINS W/ FOLIC ACID TABLET (FP) PO SCH (11:02)
[2018-04-09] MEDS: BUDESONIDE/FORMETEROL FUMARATE 160/4.5 mcg INHALER IH SCH ×2 (11:03→23:20)
[2018-04-09 11:05] LABS: ALBUMIN 3.4 g/dl (3.4-5.0); ALK PHOS 67 U/L (45-117); ANION GAP 7 MMOL/L (8-16); BILIRUBIN,TOTAL 0.6 mg/dL (0.2-1); BLOOD UREA NITROGEN 11 mg/dL (7-18); CALCIUM 9.4 mg/dL (8.5-10.1); CHLORIDE 105 mmol/L (98-107); CO2 29 mmol/L (21-32); CREATININE 0.7 mg/dL (0.55-1.3); GLUCOSE,RANDOM 94 mg/dL (74-106); POTASSIUM 4.4 mmol/L (3.5-5.1); SGOT/AST 9 U/L (15-37); SGPT/ALT 20 U/L (13-61); SODIUM 141 mmol/L (136-145); TOT PROT 6.7 g/dl (6.4-8.2)
[2018-04-09] MEDS: diazePAM 5 MG TABLET PO PRN (11:05)
[2018-04-09] MEDS: NICOTINE 7 MG/24 HOURS TOPICAL PATCH TD SCH (11:09)
[2018-04-09 21:38] LABS: URINE APPEARANCE CLOUDY; URINE BILIRUBIN NEGATIVE (<2.0 mg/dL); URINE COLOR YELLOW; URINE GLUCOSE (UA) NEGATIVE (NEGATIVE); URINE KETONE NEGATIVE (NEGATIVE); URINE LEUK ESTERASE NEGATIVE (NEGATIVE); URINE NITRITE NEGATIVE (NEGATIVE); URINE PROTEIN NEGATIVE (NEGATIVE); URINE UROBILINOGEN NEGATIVE mg/dL (0.2-1.0)
[2018-04-09] MEDS: THIAMINE HCL 100 MG TABLET (FP) PO SCH (23:19)
[2018-04-10] MEDS: guaiFENesin 200 MG/10 ML 10 ML UNIT-DOSE CUPS PO SCH ×3 (06:03→19:04)
[2018-04-10] MEDS: methylPREDNISolone 4 MG TABLET PO SCH ×2 (07:38→22:44)
[2018-04-10] MEDS: ALBUTEROL SO4 2.5/IPRATROPIUM 0.5 INH SOL 3 ML VIAL.NEB. NEB SCH ×4 (08:00→20:55)
[2018-04-10] MEDS ORDERED: METHADONE HCL 5 MG TABLET (FOR DETOX USE ONLY) PO ONE (10:00)
[2018-04-10] MEDS: PRENATAL VITAMINS W/ FOLIC ACID TABLET (FP) PO SCH (10:23)
[2018-04-10] MEDS: AMITRIPTYLINE HCL 25 MG TABLET (FP) PO SCH (10:24)
[2018-04-10] MEDS: risperiDONE 0.5 MG TABLET (FP) PO SCH ×2 (10:25→22:08)
[2018-04-10] MEDS: BUDESONIDE/FORMETEROL FUMARATE 160/4.5 mcg INHALER IH SCH ×2 (10:25→22:09)
[2018-04-10] MEDS: NICOTINE 7 MG/24 HOURS TOPICAL PATCH TD SCH (10:25)
[2018-04-10] MEDS: BENZTROPINE MESYLATE 1 MG TABLET (FP) PO SCH ×2 (10:26→22:12)
[2018-04-10] MEDS: diazePAM 5 MG TABLET PO PRN (10:28)
--- NOTE | 2018-04-10 11:53 | PN ---
BHS COWS - Scale Resting Pulse: 0= ME 80 or Below Sweatin= Chills/Flushing Restless Observation: 1= Difficult to Sit Still Pupil Size: 1= Pupils >than Normal Bone or Joint Aches: 1= Mild Discomfort Runny Nose/ Eye Tearin= Nasal Congestion GI Upset > 30mins: 2= Nausea/Diarrhea Tremor Observation of Outstretched Hands: 1= Tremor [place], Not Seen Yawning Observation: 1= 1-2x During Session Anxiety or Irritability: 1=Feels Anxious/Irritable Goose Flesh Skin: 0=Smooth Skin COWS Score: 10 BHS Progress Note (SOAP) Subjective: body aches tremor sweat restlessness anxiety low energy Objective: 04/10/18 11:54 Vital Signs Temperature 97.7 F 04/10/18 09:14 Pulse Rate 67 04/10/18 09:14 Respiratory Rate 17 04/10/18 09:14 Blood Pressure 117/72 04/10/18 09:14 O2 Sat by Pulse Oximetry (%) Laboratory Last Values WBC 9.7 K/mm3 (4.0-10.0) 04/09/18 07:00 RBC 5.37 M/mm3 (3.60-5.2) H 04/09/18 07:00 Hgb 14.8 GM/dL (10.7-15.3) 04/09/18 07:00 Hct 46.3 % (32.4-45.2) H 04/09/18 07:00 MCV 86.2 fl (80-96) 04/09/18 07:00 MCH 27.6 pg (25.7-33.7) 04/09/18 07:00 MCHC 32.1 g/dl (32.0-36.0) 04/09/18 07:00 RDW 12.3 % (11.6-15.6) 04/09/18 07:00 Plt Count 254 K/MM3 (134-434) 04/09/18 07:00 MPV 9.6 fl (7.5-11.1) 04/09/18 07:00 Sodium 141 mmol/L (136-145) 04/09/18 07:00 Potassium 4.4 mmol/L (3.5-5.1) 04/09/18 07:00 Chloride 105 mmol/L (98-107) 04/09/18 07:00 Carbon Dioxide 29 mmol/L (21-32) 04/09/18 07:00 Anion Gap 7 MMOL/L (8-16) L 04/09/18 07:00 BUN 11 mg/dL (7-18) 04/09/18 07:00 Creatinine 0.7 mg/dL (0.55-1.3) 04/09/18 07:00 Creat Clearance w eGFR > 60 (>60) 04/09/18 07:00 Random Glucose 94 mg/dL (74-106) 04/09/18 07:00 Calcium 9.4 mg/dL (8.5-10.1) 04/09/18 07:00 Total Bilirubin 0.6 mg/dL (0.2-1) 04/09/18 07:00 AST 9 U/L (15-37) L 04/09/18 07:00 ALT 20 U/L (13-61) 04/09/18 07:00 Alkaline Phosphatase 67 U/L (45-117) 04/09/18 07:00 Total Protein 6.7 g/dl (6.4-8.2) 04/09/18 07:00 Albumin 3.4 g/dl (3.4-5.0) 04/09/18 07:00 Urine Color Yellow 04/09/18 16:04 Urine Appearance Cloudy 04/09/18 16:04 Urine pH 6.0 (5.0-8.0) 04/09/18 16:04 Ur Specific [place] 1.021 (1.010-1.035) 04/09/18 16:04 Urine Protein Negative (NEGATIVE) 04/09/18 16:04 Urine Glucose (UA) Negative (NEGATIVE) 04/09/18 16:04 Urine Ketones Negative (NEGATIVE) 04/09/18 16:04 Urine Blood Negative (NEGATIVE) 04/09/18 16:04 Urine Nitrite Negative (NEGATIVE) 04/09/18 16:04 Urine Bilirubin Negative (<2.0 mg/dL) 04/09/18 16:04 Urine Urobilinogen Negative mg/dL (0.2-1.0) 04/09/18 16:04 Ur Leukocyte Esterase Negative (NEGATIVE) 04/09/18 16:04 RPR Titer Nonreactive (NONREACTIVE) 04/09/18 07:00 lab noted Assessment: 04/10/18 11:54 withdrawal sx Plan: continue detox
[2018-04-10] MEDS: THIAMINE HCL 100 MG TABLET (FP) PO SCH (22:08)
[2018-04-11] MEDS: ALBUTEROL SO4 2.5/IPRATROPIUM 0.5 INH SOL 3 ML VIAL.NEB. NEB SCH ×3 (08:25→20:49)
[2018-04-11] MEDS ORDERED: METHADONE HCL 5 MG TABLET (FOR DETOX USE ONLY) PO ONE (10:00)
[2018-04-11] MEDS: AMITRIPTYLINE HCL 25 MG TABLET (FP) PO SCH (10:36)
[2018-04-11] MEDS: PRENATAL VITAMINS W/ FOLIC ACID TABLET (FP) PO SCH (10:36)
[2018-04-11] MEDS: risperiDONE 0.5 MG TABLET (FP) PO SCH ×2 (10:36→22:16)
[2018-04-11] MEDS: NICOTINE 7 MG/24 HOURS TOPICAL PATCH TD SCH (10:37)
[2018-04-11] MEDS: diazePAM 5 MG TABLET PO PRN ×2 (10:38→17:58)
[2018-04-11] MEDS: BENZTROPINE MESYLATE 1 MG TABLET (FP) PO SCH ×2 (10:40→22:15)
[2018-04-11] MEDS: BUDESONIDE/FORMETEROL FUMARATE 160/4.5 mcg INHALER IH SCH ×2 (10:42→22:16)
--- NOTE | 2018-04-11 12:50 | PN ---
S Progress Note Note: PATIENT CONTINUES WITH DETOX REGIMEN. STATES " I FEEL FINE". C/O MILD ANXIETY. Vital Signs Temperature 98.2 F 04/11/18 09:04 Pulse Rate 105 H 04/11/18 09:04 Respiratory Rate 17 04/11/18 09:04 Blood Pressure 147/70 04/11/18 09:04 O2 Sat by Pulse Oximetry (%) Laboratory Tests 04/09/18 04/09/18 04/09/18 07:00 07:00 07:00 WBC 9.7 RBC 5.37 H Hgb 14.8 Hct 46.3 H MCV 86.2 MCH 27.6 MCHC 32.1 RDW 12.3 Plt Count 254 MPV 9.6 Sodium 141 Potassium 4.4 Chloride 105 Carbon Dioxide 29 Anion Gap 7 L BUN 11 Creatinine 0.7 Creat Clearance w eGFR > 60 Random Glucose 94 Calcium 9.4 Total Bilirubin 0.6 AST 9 L ALT 20 Alkaline Phosphatase 67 Total Protein 6.7 Albumin 3.4 Urine Color Urine Appearance Urine pH Ur Specific [place] Urine Protein Urine Glucose (UA) Urine Ketones Urine Blood Urine Nitrite Urine Bilirubin Urine Urobilinogen Ur Leukocyte Esterase RPR Titer Nonreactive 04/09/18 16:04 WBC RBC Hgb Hct MCV MCH MCHC RDW Plt Count MPV Sodium Potassium Chloride Carbon Dioxide Anion Gap BUN Creatinine Creat Clearance w eGFR Random Glucose Calcium Total Bilirubin AST ALT Alkaline Phosphatase Total Protein Albumin Urine Color Yellow Urine Appearance Cloudy Urine pH 6.0 Ur Specific [place] 1.021 Urine Protein Negative Urine Glucose (UA) Negative Urine Ketones Negative Urine Blood Negative Urine Nitrite Negative Urine Bilirubin Negative Urine Urobilinogen Negative Ur Leukocyte Esterase Negative RPR Titer SKIN WARM AND DRY ALERT AND ORIENTED X 3 CAR S1S2 RESP CTA BL EXT FULL ROM, AMB AD TEJAS A/P; WITHDRAWAL SX CONTINUE DETOX ORDERED ENCOURAGE ORAL FLUIDS CONTINUE TO MONITOR CLINICALLY
[2018-04-11] MEDS: THIAMINE HCL 100 MG TABLET (FP) PO SCH (22:15)
[2018-04-12 06:20] VITALS: TEMP 97.9
[2018-04-12] MEDS: ALBUTEROL SO4 2.5/IPRATROPIUM 0.5 INH SOL 3 ML VIAL.NEB. NEB SCH (08:30)
[2018-04-12] MEDS: AMITRIPTYLINE HCL 25 MG TABLET (FP) PO SCH (09:29)
[2018-04-12] MEDS: PRENATAL VITAMINS W/ FOLIC ACID TABLET (FP) PO SCH (09:29)
[2018-04-12] MEDS: risperiDONE 0.5 MG TABLET (FP) PO SCH (09:29)
[2018-04-12] MEDS: NICOTINE 7 MG/24 HOURS TOPICAL PATCH TD SCH (09:29)
[2018-04-12] MEDS: BUDESONIDE/FORMETEROL FUMARATE 160/4.5 mcg INHALER IH SCH (09:30)
[2018-04-12] MEDS: BENZTROPINE MESYLATE 1 MG TABLET (FP) PO SCH (09:30)
[2018-04-12 09:31] VITALS: BP 117/82; PULSE 96
[2018-04-12] MEDS ORDERED: METHADONE HCL 10 MG TABLET (FOR DETOX USE ONLY) PO ONE (10:00)
--- NOTE | 2018-04-12 12:52 | PN ---
S Progress Note (SOAP) Subjective: No new complaints Objective: 04/12/18 12:51 A & O x 3 In no acute distress Assessment: 04/12/18 12:51 Completed detox Plan: for d/c
--- NOTE | 2018-04-12 13:03 | DS ---
[facility] Detox Discharge Summary Admission Date: 04/08/18 Discharge Date: 04/12/18 - History Additional Comments: PT for discharge home, states she will go stay with her girlfriend in [facility] Will do aftercare Rehab @ [facility] Prescriptions sent to pt's documented pharmacy yesterday by another provider Pertinent Past History: asthma - Physical Exam Results Vital Signs: Vital Signs Temperature 97.9 F 04/12/18 09:31 Pulse Rate 96 H 04/12/18 09:31 Respiratory Rate 18 04/12/18 09:31 Blood Pressure 117/82 04/12/18 09:31 O2 Sat by Pulse Oximetry (%) Pertinent Admission Physical Exam Findings: withdrawal sx - Treatment Hospital Course: Detox Protocol Followed, Detoxed Safely, Responded well, Discharged Condition Good Patient has Accepted a Rehab Referral to: Out patient @ [place], [place] - Medication Discharge Medications: Ambulatory Orders Albuterol Sulfate Inhaler - [Ventolin HFA Inhaler -] 1 - 2 inh PO QID 10/31/17 Desvenlafaxine Succinate [Pristiq ER] 25 mg PO BID 10/31/17 Lamotrigine [Lamictal -] 150 mg PO BID 10/31/17 Methylprednisolone [Medrol Dose [place]] See Taper PO ASDIR 04/08/18 Amitriptyline HCl [Elavil -] 25 mg PO DAILY #30 tablet 04/09/18 Benztropine Mesylate [Cogentin -] 0.5 mg PO BID #60 tablet 04/09/18 Risperidone [Risperdal -] 0.5 mg PO BID #60 tablet 04/09/18 Albuterol 2.5/Ipratropium 0.5 [Duoneb -] 1 neb NEB Q4H #1 amp 04/11/18 Budesonide/Formeterol Fumarate [SYMBICORT 160/4.5mcg -] 1 inh PO BID #1 inhaler 04/11/18 - Diagnosis (1) Asthma Status: Acute Qualifiers: Asthma severity: mild Asthma persistence: intermittent Asthma complication type: with acute exacerbation Qualified Code(s): J45.21 - Mild intermittent asthma with (acute) exacerbation (2) Dehydration Status: Acute (3) Opioid dependence, uncomplicated Status: Acute (4) Substance induced mood disorder Status: Acute (5) Cocaine dependence Status: Chronic Qualifiers: Substance use status: uncomplicated Qualified Code(s): F14.20 - Cocaine dependence, uncomplicated (6) Nicotine abuse Status: Chronic - AMA Did Patient Leave Against Medical Advice: No
[2018-04-13] MEDS ORDERED: METHADONE HCL 5 MG TABLET (FOR DETOX USE ONLY) PO ONE (06:00)
== END 2018-04-12 10:06 | disposition home or self-care (01) | DRG 773 ==
LOC: YASAS 14:11 → Y6N 18:16
PROC: HZ2ZZZZ Detoxification Services for Substance Abuse Treatment (ICD-10-PCS; principal; 2018-04-08)
DX: F11.20 Opioid dependence, uncomplicated (principal); F14.20 Cocaine dependence, uncomplicated; F17.210 Nicotine dependence, cigarettes, uncomplicated; F19.24 Other psychoactive substance dependence with psychoactive substance-induced mood disorder; F34.1 Dysthymic disorder; F29 Unspecified psychosis not due to a substance or known physiological condition; I10 Essential (primary) hypertension; J45.21 Mild intermittent asthma with (acute) exacerbation; E86.0 Dehydration; K57.92 Diverticulitis of intestine, part unspecified, without perforation or abscess without bleeding; Z59.0 Homelessness
CPT/HCPCS: 36415; 80053; 81003; 85027; 86593; 94640

== ENCOUNTER 2018-09-08 17:58 | Inpatient (IN) | payer OTHER ==
[2018-09-08 19:49] VITALS: BMI 25.2
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
[2018-09-08] MEDS ORDERED: ALBUTEROL SO4 8 GM HFA INHALER IH PRN (22:17)
[2018-09-08] MEDS ORDERED: ACETAMINOPHEN 325 MG TABLET (FP) PO PRN (22:18)
[2018-09-08] MEDS ORDERED: P-EPHED 60MG/TRIPROLIDI 2.5MG TABLET PO PRN (22:18)
[2018-09-08] MEDS ORDERED: MAGNESIUM CITRATE 300 ML BOTTLE PO PRN (22:18)
[2018-09-08] MEDS ORDERED: METHOCARBAMOL 500 MG TABLET PO PRN (22:18)
[2018-09-08] MEDS ORDERED: MENTHOL/PHENOL 1 EACH UD MM PRN (22:18)
[2018-09-08] MEDS ORDERED: MAGNESIUM HYDROX 2400MG/30ML ORAL SUSPENSION 30 ML CUP PO PRN (22:18)
[2018-09-08] MEDS ORDERED: MELATONIN 5 MG TABLETS PO PRN (22:18)
[2018-09-08] MEDS ORDERED: BISMUTH SUBSALICYLATE 524 MG/30 ML UD PO PRN (22:18)
[2018-09-08] MEDS ORDERED: MAG HYDROX/AL HYDROX/SIMETH 30 ML UNIT-DOSE CUP PO PRN (22:18)
[2018-09-08] MEDS ORDERED: cloNIDine HCL 0.1 MG TABLET PO PRN (22:18)
[2018-09-08] MEDS ORDERED: IBUPROFEN 400 MG TABLET (FP) PO PRN (22:18)
[2018-09-08] MEDS ORDERED: DICYCLOMINE HCL 10 MG CAPSULE PO PRN (22:18)
[2018-09-08] MEDS ORDERED: NALOXONE HCL 0.4 MG/ML VIAL IVPUSH PRN (22:18)
[2018-09-08] MEDS ORDERED: NICOTINE POLACRILEX 2 MG GUM BUC PRN (22:18)
[2018-09-08] MEDS ORDERED: ONDANSETRON *ODT* 4 MG TABLET SL PRN (22:18)
[2018-09-08] MEDS ORDERED: METHADONE HCL 10 MG TABLET (FOR DETOX USE ONLY) PO ONE (23:00)
[2018-09-09] MEDS ORDERED: METHADONE HCL 10 MG TABLET (FOR DETOX USE ONLY) PO ONE ×2 (00:58→10:00)
[2018-09-09] MEDS: ALBUTEROL SO4 2.5/IPRATROPIUM 0.5 INH SOL 3 ML VIAL.NEB. NEB SCH ×5 (01:21→22:24)
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
[2018-09-09] MEDS: PRENATAL VITAMINS W/ FOLIC ACID TABLET (FP) PO SCH (10:09)
[2018-09-09] MEDS: NICOTINE 14 MG/24 HOURS TOPICAL PATCH TD SCH (10:10)
[2018-09-09] MEDS: BUDESONIDE/FORMETEROL FUMARATE 160/4.5 mcg INHALER IH SCH ×2 (10:12→22:19)
--- NOTE | 2018-09-09 11:12 | PN ---
BHS COWS - Scale Resting Pulse: 1= [place] 81-100 Sweatin=Flushed/Facial Moisture Restless Observation: 1= Difficult to Sit Still Pupil Size: 0= Normal to Room Light Bone or Joint Aches: 2= Severe Diffuse Aches Runny Nose/ Eye Tearin= Runny Nose/Eyes GI Upset > 30mins: 0= None Tremor Observation of Outstretched Hands: 2= Slight Tremor Visible Yawning Observation: 2= >3x During Session Anxiety or Irritability: 2=Irritable/Anxious Goose Flesh Skin: 3=Piloerection COWS Score: 17 BHS Progress Note (SOAP) Subjective: nausea sweats mild shakes interrupted sleep tired Objective: 09/09/18 11:11 Vital Signs Temperature 97.9 F 09/09/18 09:34 Pulse Rate 73 09/09/18 09:34 Respiratory Rate 18 09/09/18 09:34 Blood Pressure 123/75 09/09/18 09:34 O2 Sat by Pulse Oximetry (%) pending labs aaox3 ambulating no acute distress Assessment: 09/09/18 11:12 withdrawal sx Plan: continue detox increase fluids pending labs
[2018-09-09] MEDS: risperiDONE 0.5 MG TABLET (FP) PO SCH ×2 (11:26→22:18)
[2018-09-09 11:28] LABS: HEMATOCRIT 41.6 % (32.4-45.2); HEMOGLOBIN 14.1 GM/dL (10.7-15.3); MCH 28.4 pg (25.7-33.7); MCHC 33.9 g/dl (32.0-36.0); MEAN CELL VOLUME 83.7 fl (80-96); MEAN PLT VOLUME 8.5 fl (7.5-11.1); PLATELET COUNT 260 K/MM3 (134-434); RBC 4.96 M/mm3 (3.60-5.2); RDW 12.7 % (11.6-15.6)
[2018-09-09 11:28] LABS: URINE APPEARANCE SLCLOUDY; URINE BILIRUBIN NEGATIVE (<2.0 mg/dL); URINE COLOR STRAW; URINE GLUCOSE (UA) NEGATIVE (NEGATIVE); URINE KETONE NEGATIVE (NEGATIVE); URINE LEUK ESTERASE 3+ (NEGATIVE); URINE NITRITE NEGATIVE (NEGATIVE); URINE PROTEIN NEGATIVE (NEGATIVE); URINE UROBILINOGEN NEGATIVE mg/dL (0.2-1.0)
[2018-09-09 11:34] LABS: ALBUMIN 3.5 g/dl (3.4-5.0); ALK PHOS 113 U/L (45-117); ANION GAP 5 MMOL/L (8-16); BILIRUBIN,TOTAL 0.4 mg/dL (0.2-1); BLOOD UREA NITROGEN 12 mg/dL (7-18); CALCIUM 9.2 mg/dL (8.5-10.1); CHLORIDE 103 mmol/L (98-107); CO2 28 mmol/L (21-32); CREATININE 0.7 mg/dL (0.55-1.3); GLUCOSE,RANDOM 89 mg/dL (74-106); SGOT/AST 53 U/L (15-37); SGPT/ALT 95 U/L (13-61); SODIUM 136 mmol/L (136-145); TOT PROT 7.8 g/dl (6.4-8.2)
[2018-09-09 11:43] LABS: EPI CELLS FEW /HPF (FEW); URINE MUCUS RARE; YEAST RARE
[2018-09-09] MEDS: hydrOXYzine PAMOATE 25 MG CAPSULE (FP) PO PRN (17:51)
[2018-09-09] MEDS: THIAMINE HCL 100 MG TABLET (FP) PO SCH (22:18)
[2018-09-09] MEDS: traZODone HCL 50 MG TABLET (FP) PO SCH (22:18)
[2018-09-10] MEDS: ALBUTEROL SO4 2.5/IPRATROPIUM 0.5 INH SOL 3 ML VIAL.NEB. NEB SCH ×3 (00:22→07:47)
[2018-09-10] MEDS: ALBUTEROL SO4 2.5/IPRATROPIUM 0.5 INH SOL 3 ML VIAL.NEB. NEB PRN ×3 (09:09→23:03)
[2018-09-10] MEDS ORDERED: METHADONE HCL 10 MG TABLET (FOR DETOX USE ONLY) PO ONE (10:00)
[2018-09-10] MEDS: risperiDONE 0.5 MG TABLET (FP) PO SCH ×2 (10:05→22:17)
[2018-09-10] MEDS: PRENATAL VITAMINS W/ FOLIC ACID TABLET (FP) PO SCH (10:05)
[2018-09-10] MEDS: BUDESONIDE/FORMETEROL FUMARATE 160/4.5 mcg INHALER IH SCH ×2 (10:05→22:17)
[2018-09-10] MEDS ORDERED: METHADONE HCL 5 MG TABLET (FOR DETOX USE ONLY) PO ONE (10:30)
[2018-09-10] MEDS: NICOTINE 14 MG/24 HOURS TOPICAL PATCH TD SCH (10:33)
--- NOTE | 2018-09-10 14:06 | PN ---
BHS COWS - Scale Resting Pulse: 0= [place] 80 or Below Sweatin=Flushed/Facial Moisture Restless Observation: 1= Difficult to Sit Still Pupil Size: 0= Normal to Room Light Bone or Joint Aches: 1= Mild Discomfort Runny Nose/ Eye Tearin= Nasal Congestion GI Upset > 30mins: 0= None Tremor Observation of Outstretched Hands: 2= Slight Tremor Visible Yawning Observation: 2= >3x During Session Anxiety or Irritability: 2=Irritable/Anxious Goose Flesh Skin: 0=Smooth Skin COWS Score: 11 S Progress Note (SOAP) Subjective: low back pain sweats shakes irritable agitation Objective: 09/10/18 14:05 Vital Signs Temperature 97.1 F L 09/10/18 09:49 Pulse Rate 98 H 09/10/18 09:49 Respiratory Rate 16 09/10/18 09:49 Blood Pressure 119/65 09/10/18 09:49 O2 Sat by Pulse Oximetry (%) 100 09/10/18 09:39 Laboratory Tests 09/09/18 09/09/18 09/09/18 07:30 07:30 07:30 WBC 6.0 RBC 4.96 Hgb 14.1 Hct 41.6 MCV 83.7 MCH 28.4 MCHC 33.9 RDW 12.7 Plt Count 260 MPV 8.5 D Sodium 136 Potassium 4.0 Chloride 103 Carbon Dioxide 28 Anion Gap 5 L BUN 12 Creatinine 0.7 Creat Clearance w eGFR 98.93 Random Glucose 89 Calcium 9.2 Total Bilirubin 0.4 AST 53 H ALT 95 H Alkaline Phosphatase 113 Total Protein 7.8 Albumin 3.5 Urine Color Urine Appearance Urine pH Ur Specific [place] Urine Protein Urine Glucose (UA) Urine Ketones Urine Blood Urine Nitrite Urine Bilirubin Urine Urobilinogen Ur Leukocyte Esterase Urine WBC (Auto) Urine RBC (Auto) Ur Epithelial Cells Urine Mucus Urine Yeast RPR Titer Nonreactive 09/09/18 10:20 WBC RBC Hgb Hct MCV MCH MCHC RDW Plt Count MPV Sodium Potassium Chloride Carbon Dioxide Anion Gap BUN Creatinine Creat Clearance w eGFR Random Glucose Calcium Total Bilirubin AST ALT Alkaline Phosphatase Total Protein Albumin Urine Color Straw Urine Appearance Slcloudy Urine pH 9.0 H D Ur Specific [place] 1.006 L Urine Protein Negative Urine Glucose (UA) Negative Urine Ketones Negative Urine Blood Negative Urine Nitrite Negative Urine Bilirubin Negative Urine Urobilinogen Negative Ur Leukocyte Esterase 3+ H Urine WBC (Auto) 21 Urine RBC (Auto) 1 Ur Epithelial Cells Few Urine Mucus Rare Urine Yeast Rare RPR Titer aaox3 ambulating no acute distress Assessment: 09/10/18 14:05 withdrawal sx Plan: continue detox increase fluids lidocaine patch motrin/tylenol prn
[2018-09-10] MEDS ORDERED: LIDOCAINE 5% TOPICAL PATCH TP ONE (14:30)
[2018-09-10] MEDS ORDERED: LIDOCAINE PATCH REMOVAL MC SCH (22:00)
[2018-09-10] MEDS: traZODone HCL 50 MG TABLET (FP) PO SCH (22:17)
[2018-09-10] MEDS: THIAMINE HCL 100 MG TABLET (FP) PO SCH (22:17)
[2018-09-10] MEDS: hydrOXYzine PAMOATE 25 MG CAPSULE (FP) PO PRN (22:18)
[2018-09-11 06:53] VITALS: BP 114/68; PULSE 70; TEMP 97.9
[2018-09-11] MEDS ORDERED: METHADONE HCL 5 MG TABLET (FOR DETOX USE ONLY) PO ONE (09:00)
[2018-09-11] MEDS: ALBUTEROL SO4 2.5/IPRATROPIUM 0.5 INH SOL 3 ML VIAL.NEB. NEB PRN (09:35)
[2018-09-11] MEDS ORDERED: METHADONE HCL 10 MG TABLET (FOR DETOX USE ONLY) PO ONE (10:00)
[2018-09-11] MEDS ORDERED: LIDOCAINE 5% TOPICAL PATCH TP SCH (10:00)
--- NOTE | 2018-09-11 18:12 | PN ---
BHS Progress Note (SOAP) Subjective: Patient denies current Withdrawal / Detox symptoms and reports that She feels well overall Objective: PATIENT A & O X 3, OBSERVED AMBULATING ON UNIT. IN NO ACUTE DISTRESS. 09/11/18 18:11 Vital Signs Temperature 97.9 F 09/11/18 06:52 Pulse Rate 70 09/11/18 06:52 Respiratory Rate 18 09/11/18 06:52 Blood Pressure 114/68 09/11/18 06:52 O2 Sat by Pulse Oximetry (%) 100 09/10/18 09:39 Laboratory Tests 09/09/18 09/09/18 09/09/18 07:30 07:30 07:30 WBC 6.0 RBC 4.96 Hgb 14.1 Hct 41.6 MCV 83.7 MCH 28.4 MCHC 33.9 RDW 12.7 Plt Count 260 MPV 8.5 D Sodium 136 Potassium 4.0 Chloride 103 Carbon Dioxide 28 Anion Gap 5 L BUN 12 Creatinine 0.7 Creat Clearance w eGFR 98.93 Random Glucose 89 Calcium 9.2 Total Bilirubin 0.4 AST 53 H ALT 95 H Alkaline Phosphatase 113 Total Protein 7.8 Albumin 3.5 Urine Color Urine Appearance Urine pH Ur Specific [place] Urine Protein Urine Glucose (UA) Urine Ketones Urine Blood Urine Nitrite Urine Bilirubin Urine Urobilinogen Ur Leukocyte Esterase Urine WBC (Auto) Urine RBC (Auto) Ur Epithelial Cells Urine Mucus Urine Yeast RPR Titer Nonreactive 09/09/18 10:20 WBC RBC Hgb Hct MCV MCH MCHC RDW Plt Count MPV Sodium Potassium Chloride Carbon Dioxide Anion Gap BUN Creatinine Creat Clearance w eGFR Random Glucose Calcium Total Bilirubin AST ALT Alkaline Phosphatase Total Protein Albumin Urine Color Straw Urine Appearance Slcloudy Urine pH 9.0 H D Ur Specific [place] 1.006 L Urine Protein Negative Urine Glucose (UA) Negative Urine Ketones Negative Urine Blood Negative Urine Nitrite Negative Urine Bilirubin Negative Urine Urobilinogen Negative Ur Leukocyte Esterase 3+ H Urine WBC (Auto) 21 Urine RBC (Auto) 1 Ur Epithelial Cells Few Urine Mucus Rare Urine Yeast Rare RPR Titer LABS NOTED. Assessment: 09/11/18 18:11 COMPLETION OF DETOX REGIMEN. Plan: SINCE PATIENT DENIES CURRENT WITHDRAWAL / DETOX SYMPTOMS AND REPORTS THAT HE FEELS WELL OVERALL, PATIENT GRANTED AN EARLY DISCHARGE FROM DETOX UNIT TODAY SO THAT SHE MAY PROCEED ON TO AFTERCARE PLAN.
--- NOTE | 2018-09-11 18:17 | DS ---
[facility] Detox Discharge Summary Admission Date: 09/08/18 Discharge Date: 09/11/18 - History Present History: Cocaine Dependence, Opioid Dependence Additional Comments: PATIENT DENIES CURRENT WITHDRAWAL / DETOX SYMPTOMS AND REPORTS THAT SHE FEELS WELL OVERALL AT TIME OF DISCHARGE FROM DETOX UNIT. PATIENT WILL ATTEND [facility] ([place] [place]) OUTPATIENT PROGRAM FOR AFTERCARE. PATIENT DECLINED OFFER OF MEDICATION PRESCRIPTION FOR HOME MEDICATION AT TIME OF DISCHARGE FROM DETOX, NOTING THAT HE CURRENTLY HAS ADEQUATE SUPPLIES OF ALL PRESCRIBED HOME MEDICATIONS AT HOME. PATIENT WAS DISCHARGED FROM DETOX UNIT IN STABLE MEDICAL CONDITION. Pertinent Past History: Asthma, Depression, Nicotine Dependence, Intravenous Drug User (I.V.D.U.), Manic Depression. - Physical Exam Results Vital Signs: Vital Signs Temperature 97.9 F 09/11/18 06:52 Pulse Rate 70 09/11/18 06:52 Respiratory Rate 18 09/11/18 06:52 Blood Pressure 114/68 09/11/18 06:52 O2 Sat by Pulse Oximetry (%) 100 09/10/18 09:39 Pertinent Admission Physical Exam Findings: WITHDRAWAL SYMPTOMS. Laboratory Tests 09/09/18 09/09/18 09/09/18 07:30 07:30 07:30 WBC 6.0 RBC 4.96 Hgb 14.1 Hct 41.6 MCV 83.7 MCH 28.4 MCHC 33.9 RDW 12.7 Plt Count 260 MPV 8.5 D Sodium 136 Potassium 4.0 Chloride 103 Carbon Dioxide 28 Anion Gap 5 L BUN 12 Creatinine 0.7 Creat Clearance w eGFR 98.93 Random Glucose 89 Calcium 9.2 Total Bilirubin 0.4 AST 53 H ALT 95 H Alkaline Phosphatase 113 Total Protein 7.8 Albumin 3.5 Urine Color Urine Appearance Urine pH Ur Specific [place] Urine Protein Urine Glucose (UA) Urine Ketones Urine Blood Urine Nitrite Urine Bilirubin Urine Urobilinogen Ur Leukocyte Esterase Urine WBC (Auto) Urine RBC (Auto) Ur Epithelial Cells Urine Mucus Urine Yeast RPR Titer Nonreactive 09/09/18 10:20 WBC RBC Hgb Hct MCV MCH MCHC RDW Plt Count MPV Sodium Potassium Chloride Carbon Dioxide Anion Gap BUN Creatinine Creat Clearance w eGFR Random Glucose Calcium Total Bilirubin AST ALT Alkaline Phosphatase Total Protein Albumin Urine Color Straw Urine Appearance Slcloudy Urine pH 9.0 H D Ur Specific [place] 1.006 L Urine Protein Negative Urine Glucose (UA) Negative Urine Ketones Negative Urine Blood Negative Urine Nitrite Negative Urine Bilirubin Negative Urine Urobilinogen Negative Ur Leukocyte Esterase 3+ H Urine WBC (Auto) 21 Urine RBC (Auto) 1 Ur Epithelial Cells Few Urine Mucus Rare Urine Yeast Rare RPR Titer LABS NOTED. - Treatment Hospital Course: Detox Protocol Followed, Detoxed Safely, Responded well, Discharged Condition Good Patient has Accepted a Rehab Referral to: PT. [facility] - Medication Discharge Medications: Ambulatory Orders Albuterol Sulfate Inhaler - [Ventolin HFA Inhaler -] 1 - 2 inh PO QID 10/31/17 Benztropine Mesylate [Cogentin -] 0.5 mg PO BID #60 tablet 04/09/18 Risperidone [Risperdal -] 0.5 mg PO BID #60 tablet 04/09/18 Albuterol 2.5/Ipratropium 0.5 [Duoneb -] 1 neb NEB Q4H #1 amp 04/11/18 Budesonide/Formeterol Fumarate [SYMBICORT 160/4.5mcg -] 1 inh PO BID #1 inhaler 04/11/18 - Diagnosis (1) Asthma Status: Acute Qualifiers: Asthma severity: mild Asthma persistence: intermittent Asthma complication type: uncomplicated Qualified Code(s): J45.20 - Mild intermittent asthma, uncomplicated (2) At risk for dehydration due to poor fluid intake Status: Acute (3) Homeless Status: Acute (4) IVDA (intravenous drug abuse) complicating Status: Acute (5) Opioid dependence with withdrawal Status: Acute (6) Substance induced mood disorder Status: Acute (7) Cocaine dependence Status: Chronic Qualifiers: Substance use status: uncomplicated Qualified Code(s): F14.20 - Cocaine dependence, uncomplicated (8) Depression Status: Chronic Qualifiers: Depression Type: dysthymia Qualified Code(s): F34.1 - Dysthymic disorder (9) Nicotine abuse Status: Chronic (10) Substance-induced sleep disorder Status: Acute - AMA Did Patient Leave Against Medical Advice: No
[2018-09-12] MEDS ORDERED: METHADONE HCL 5 MG TABLET (FOR DETOX USE ONLY) PO ONE (06:00)
== END 2018-09-11 09:59 | disposition home or self-care (01) | DRG 773 ==
LOC: YASAS 17:58 → Y6N 23:40
PROVIDERS: ADMIT Surgery; ATTEND Surgery
PROC: HZ2ZZZZ Detoxification Services for Substance Abuse Treatment (ICD-10-PCS; principal; 2018-09-08)
DX: F11.23 Opioid dependence with withdrawal (principal); F14.20 Cocaine dependence, uncomplicated; F17.210 Nicotine dependence, cigarettes, uncomplicated; F34.1 Dysthymic disorder; F19.282 Other psychoactive substance dependence with psychoactive substance-induced sleep disorder; F19.24 Other psychoactive substance dependence with psychoactive substance-induced mood disorder; F41.9 Anxiety disorder, unspecified; J45.20 Mild intermittent asthma, uncomplicated; Z91.89 Other specified personal risk factors, not elsewhere classified; Z91.5 Personal history of self-harm; Z59.0 Homelessness
CPT/HCPCS: 36415; 80053; 81003; 81015; 85027; 86593; 94640; J0735

== ENCOUNTER 2019-05-23 19:04 | Inpatient (IN) | payer OTHER ==
[2019-05-23 19:05] VITALS: BMI 20.1
--- NOTE | 2019-05-23 22:38 | HP ---
COWS - Scale Resting Pulse: 1= [place] 81-100 Sweatin=Flushed/Facial Moisture Restless Observation: 1= Difficult to Sit Still Pupil Size: 1= Pupils >than Normal Bone or Joint Aches: 4=Acute Joint/Muscle Pain Runny Nose/ Eye Tearin= Nasal Congestion GI Upset > 30mins: 2= Nausea/Diarrhea Tremor Observation: 0= None Yawning Observation: 2= >3x During Session Anxiety or Irritability: 2=Irritable/Anxious Goose Flesh Skin: 3=Piloerection COWS Score: 19 CIWA Score - Admission Criteria OASAS Guidelines: Admission for Medically Managed Detox: Requires at least one of the followin. CIWA greater than 12 2. Seizures within the past 24 hours 3. Delirium tremens within the past 24 hours 4. Hallucinations within the past 24 hours 5. Acute intervention needed for co occurring medical disorder 6. Acute intervention needed for co occurring psychiatric disorder 7. Severe withdrawal that cannot be handled at a lower level of care (continued vomiting, continued diarrhea, abnormal vital signs) requiring intravenous medication and/or fluids 8. Admitting History and Physical - Past Medical History ...LMP: 02/05/18 - Smoking History Smoking history: Current every day smoker Have you smoked in the past 12 months: Yes Aproximately how many cigarettes per day: 5 - Alcohol/Substance Use Hx Alcohol Use: No Admission ROS [facility] Chief Complaint: seeking detox from heroin Allergies/Adverse Reactions: Allergies Allergy/AdvReac Type Severity Reaction Status Date / Time Rho(D) immune globulin Allergy Severe Rash Verified 05/23/19 18:53 [From RhoGam] mushroom Allergy Intermediate Vomiting Verified 05/23/19 18:15 No Known Drug Allergies Allergy Verified 09/08/18 23:35 History of Present Illness: here for heroi detox. client is self referred. known to program . last here 2018. reports relapsing 1 week after. she reports daily use of 30 bags via iv. last use this afternoon. used about 2 bags today. now presents with withdrawal sx's. denies hx/o drug overdose, + blackouts denies seizures. reports longest clean time 10 months. relapsing 01/2018. homeless, unemployed, denies legals Exam Limitations: No Limitations - Ebola screening Have you traveled outside of the country in the last 21 days: No (N) Have you had contact with anyone from an Ebola affected area: No Do you have a fever: No - Review of Systems Constitutional: Chills, Loss of Appetite, Malaise, Night Sweats, Changes in sleep EENT: reports: Nose Congestion Respiratory: reports: Shortness of Breath (hx/o asthma) Cardiac: reports: No Symptoms Reported GI: reports: Nausea, Poor Appetite, Poor Fluid Intake : reports: Dysuria, Frequency Musculoskeletal: reports: Back Pain, Joint Pain Integumentary: reports: Other (track lockhart and adhikari on hands and arms) Neuro: reports: Headache, Other (black outs- last being few years ago) Endocrine: reports: No Symptoms Reported Hematology: reports: Easy Bruising Psychiatric: reports: Orientated x3, Anxious, Depressed Other Systems: Reviewed and Negative Patient History - Patient Medical History Hx Anemia: No Hx Asthma: Yes Hx Chronic Obstructive Pulmonary Disease (COPD): No Hx Cancer: No Hx Cardiac Disorders: No Hx Congestive Heart Failure: No Hx Hypertension: No Hx Hypercholesterolemia: No Hx Pacemaker: No HX Cerebrovascular Accident: No Hx Seizures: No Hx Dementia: No Hx Diabetes: No Hx Gastrointestinal Disorders: Yes (hx/o diverticulitis) Hx Liver Disease: No Hx Genitourinary Disorders: No Hx Sexually Transmitted Disorders: No Hx Renal Disease (ESRD): No Hx Thyroid Disease: No Hx Human Immunodeficiency Virus (HIV): No Hx Hepatitis C: No Hx Depression: Yes Hx Suicide Attempt: No Hx Bipolar Disorder: No Hx Schizophrenia: No Other Medical History: denies - Patient Surgical History Past Surgical History: Yes Hx Neurologic Surgery: No Hx Cataract Extraction: No Hx Cardiac Surgery: No Hx Lung Surgery: No Hx Breast Surgery: Yes ([facility]-2007) Hx Breast Biopsy: No Hx Abdominal Surgery: No Hx Appendectomy: No Hx Cholecystectomy: No Hx Genitourinary Surgery: No Hx Section: No Hx Orthopedic Surgery: No Anesthesia Reaction: No - PPD History Previous Implant?: Yes Documented Results: Negative w/proof Implanted On Prior [facility] Admission?: Yes Date: 11/02/17 Results: 0MM PPD to be Administered?: Yes - Reproductive History Patient is a Female of Child Bearing Age (11 -55 yrs old): Yes Last Menstrual Period: 02/05/18 Patient : No (neg cg) - Smoking Cessation Smoking history: Current every day smoker Have you smoked in the past 12 months: Yes Aproximately how many cigarettes per day: 5 Cigars Per Day: 0 Hx Chewing Tobacco Use: No Initiated information on smoking cessation: Yes 'Breaking Loose' booklet given: 05/23/19 - Substance & Tx. History Hx Alcohol Use: Yes Hx Substance Use: Yes Substance Use Type: Alcohol, Cocaine Hx Substance Use Treatment: Yes ([facility]) - Substances abused Heroin Substance route: Injection Frequency: Daily Amount used: 30 bags Age of first use: 23 Date of last use: 05/23/19 (2 bags) Crack Substance route: Smoking Frequency: Daily Amount used: $300-$400 Age of first use: 26 Date of last use: 05/22/19 Cocaine Substance route: Injection Frequency: 1-2 times per week Amount used: $50/day Age of first use: 28 Date of last use: 05/16/19 Admission Physical Exam S - Vital Signs Vital Signs: Vital Signs - 24 hr 05/23/19 18:59 Temperature 96.8 F L Pulse Rate 90 Respiratory 18 Rate Blood Pressure 101/70 - Physical General Appearance: Yes: Moderate Distress, Tremorous (felt), Anxious HEENTM: Yes: EOMI, Normal ENT Inspection, Normocephalic, Normal Voice, TAMICA Respiratory: Yes: Chest Non-Tender, Lungs Clear, Normal Breath Sounds, No Respiratory Distress, No Accessory Muscle Use Neck: Yes: No masses,lesions,Nodules, Supple, Trachea in good position Breast: Yes: Breasts Symetrical (bilat nipple peircing with jewerlry) Cardiology: Yes: Regular Rhythm, Regular Rate, S1, S2 Abdominal: Yes: Normal Bowel Sounds, Non Tender, Soft Genitourinary: Yes: Frequency (c/o), Dysuria (c/o) Back: Yes: Normal Inspection Musculoskeletal: Yes: full range of Motion, Gait Steady Extremities: Yes: Normal Capillary Refill, Normal Range of Motion, Non-Tender, Tremors (felt) Neurological: Yes: Fully Oriented, Alert, Motor Strength 5/5, Depressed Affect Integumentary: Yes: Dry, Warm, Track Lockhart Lymphatic: Yes: Within Normal Limits - Diagnostic (1) Cocaine dependence, uncomplicated Current Visit: Yes Status: Acute (2) Nicotine dependence Current Visit: Yes Status: Acute (3) IVDU (intravenous drug user) Current Visit: Yes Status: Acute (4) Track lockhart due to intravenous drug abuse Current Visit: Yes Status: Acute (5) Asthma Current Visit: No Status: Acute Qualifiers: Asthma severity: mild Asthma persistence: intermittent Asthma complication type: uncomplicated Qualified Code(s): J45.20 - Mild intermittent asthma, uncomplicated (6) At risk for dehydration due to poor fluid intake Current Visit: No Status: Acute (7) Homeless Current Visit: No Status: Acute (8) Opioid dependence with withdrawal Current Visit: No Status: Acute (9) Substance induced mood disorder Current Visit: No Status: Acute (10) Substance-induced sleep disorder Current Visit: No Status: Acute (11) Non compliance w medication regimen Current Visit: Yes Status: Acute Cleared for Admission [facility] - Detox or Rehab S Level of Care: Medically Managed Detox Regimen/Protocol: Methadone Claeared for Rehab Admission: No Breathalyzer - Breathalyzer Breathalyzer: 0 Urine Drug Screen - Test Device Lot number: [id number] Expiration date: 01/21/21 - Control Is test valid?: Yes - Results Drug screen NEGATIVE: No Urine drug screen results: KOFFI-Cocaine, FEN-Fentanyl, MOP-Opiates Inpatient Rehab Admission - Rehab Decision to Admit Inpatient rehab admission?: No
[2019-05-23] MEDS ORDERED: METHOCARBAMOL 500 MG TABLET PO PRN (22:43)
[2019-05-23] MEDS ORDERED: IBUPROFEN 400 MG TABLET (FP) PO PRN (22:43)
[2019-05-23] MEDS ORDERED: ACETAMINOPHEN 325 MG TABLET (FP) PO PRN ×2 (22:43)
[2019-05-23] MEDS ORDERED: guaiFENesin 200 MG/10 ML 10 ML UNIT-DOSE CUPS PO PRN (22:43)
[2019-05-23] MEDS ORDERED: hydrOXYzine PAMOATE 25 MG CAPSULE (FP) PO PRN (22:43)
[2019-05-23] MEDS ORDERED: MENTHOL/PHENOL 1 EACH UD MM PRN (22:43)
[2019-05-23] MEDS ORDERED: P-EPHED 60MG/TRIPROLIDI 2.5MG TABLET PO PRN (22:43)
[2019-05-23] MEDS ORDERED: NICOTINE POLACRILEX 2 MG GUM BUC PRN (22:43)
[2019-05-23] MEDS ORDERED: METHADONE HCL 10 MG TABLET (FOR DETOX USE ONLY) PO ONE (22:43)
[2019-05-23] MEDS ORDERED: MAGNESIUM HYDROX 2400MG/30ML ORAL SUSPENSION 30 ML CUP PO PRN (22:43)
[2019-05-23] MEDS ORDERED: BISMUTH SUBSALICYLATE 524 MG/30 ML UD PO PRN (22:43)
[2019-05-23] MEDS ORDERED: MAG HYDROX/AL HYDROX/SIMETH 30 ML UNIT-DOSE CUP PO PRN (22:43)
[2019-05-23] MEDS ORDERED: ONDANSETRON *ODT* 4 MG TABLET SL PRN (22:43)
[2019-05-23] MEDS ORDERED: DICYCLOMINE HCL 10 MG CAPSULE PO PRN (22:43)
[2019-05-23] MEDS ORDERED: MELATONIN 5 MG TABLETS PO PRN (22:43)
[2019-05-23] MEDS ORDERED: cloNIDine HCL 0.1 MG TABLET PO PRN (22:43)
[2019-05-23] MEDS ORDERED: MAGNESIUM CITRATE 300 ML BOTTLE PO PRN (22:43)
[2019-05-23] MEDS ORDERED: NALOXONE HCL 0.4 MG/ML VIAL IM PRN (22:43)
[2019-05-24] MEDS ORDERED: METHADONE HCL 10 MG TABLET (FOR DETOX USE ONLY) PO ONE (00:35)
[2019-05-24 09:29] VITALS: BP 119/75; PULSE 97; TEMP 97.4
[2019-05-24] MEDS ORDERED: METHADONE HCL 5 MG TABLET (FOR DETOX USE ONLY) PO ONE (10:00)
[2019-05-24] MEDS ORDERED: PRENATAL VITAMINS W/ FOLIC ACID TABLET (FP) PO SCH (10:00)
[2019-05-24] MEDS ORDERED: METHADONE (DETOX) 20 MG, METHADONE (DETOX) 5 MG PO ONE (10:00)
[2019-05-24] MEDS ORDERED: NICOTINE 14 MG/24 HOURS TOPICAL PATCH TD SCH (10:00)
--- NOTE | 2019-05-24 11:06 | DS ---
[facility] Detox Discharge Summary Admission Date: 05/23/19 Discharge Date: 05/24/19 - History Present History: Opioid Dependence Additional Comments: 28 years old female admitted on 05/23/19 for opiate withdrawal sx management treated with methadone detox regimen patient is alert oriented x 3 speech clearly coherently ambulating steady gait patient insists to leave the detox unit that she prefers to go to [place] today with her friends patient refuses cows refuses exist discharge physical examination Pertinent Past History: discuss medication assisted treatment program supervisor opening and picking narcan from pharmacy - Physical Exam Results Vital Signs: Vital Signs Temperature 97.4 F L 05/24/19 09:28 Pulse Rate 97 H 05/24/19 09:28 Respiratory Rate 18 05/24/19 09:28 Blood Pressure 119/75 05/24/19 09:28 O2 Sat by Pulse Oximetry (%) Pertinent Admission Physical Exam Findings: opiate withdrawal sx Vital Signs Temperature 97.4 F L 05/24/19 09:28 Pulse Rate 97 H 05/24/19 09:28 Respiratory Rate 18 05/24/19 09:28 Blood Pressure 119/75 05/24/19 09:28 O2 Sat by Pulse Oximetry (%) lab pending - Treatment Hospital Course: Detox Protocol Followed, Responded well Patient has Accepted a Rehab Referral to: community support approach - Medication Discharge Medications: Ambulatory Orders Albuterol Sulfate Inhaler - [Ventolin HFA Inhaler -] 1 - 2 inh PO QID 10/31/17 Benztropine Mesylate [Cogentin -] 0.5 mg PO BID #60 tablet 04/09/18 Albuterol 2.5/Ipratropium 0.5 [Duoneb -] 1 neb NEB Q4H #1 amp 04/11/18 Budesonide/Formeterol Fumarate [SYMBICORT 160/4.5mcg -] 1 inh PO BID #1 inhaler 04/11/18 Naloxone HCl [Narcan] 4 mg NS ASDIR PRN #1 spray 05/24/19 - Diagnosis (1) Nicotine dependence Current Visit: Yes Status: Acute Qualifiers: Nicotine product type: cigarettes Substance use status: in withdrawal Qualified Code(s): F17.213 - Nicotine dependence, cigarettes, with withdrawal (2) Asthma Current Visit: Yes Status: Chronic Qualifiers: Asthma severity: mild Asthma persistence: intermittent Asthma complication type: with status asthmaticus Qualified Code(s): J45.22 - Mild intermittent asthma with status asthmaticus (3) Opioid dependence with withdrawal Current Visit: Yes Status: Acute (4) Substance induced mood disorder Current Visit: Yes Status: Suspected - AMA Did Patient Leave Against Medical Advice: Yes
[2019-05-24 12:43] LABS: HEMATOCRIT 44.9 % (32.4-45.2); HEMOGLOBIN 14.7 GM/dL (10.7-15.3); MCH 28.1 pg (25.7-33.7); MCHC 32.8 g/dl (32.0-36.0); MEAN CELL VOLUME 85.6 fl (80-96); MEAN PLT VOLUME 8.8 fl (7.5-11.1); PLATELET COUNT 223 K/MM3 (134-434); RBC 5.25 M/mm3 (3.60-5.2); WHITE BLOOD COUNT 7.7 K/mm3 (4.0-10.0)
[2019-05-24 12:51] LABS: ALBUMIN 3.2 g/dl (3.4-5.0); BILIRUBIN,TOTAL 0.3 mg/dL (0.2-1); CALCIUM 8.8 mg/dL (8.5-10.1); CREATININE 0.8 mg/dL (0.55-1.3); POTASSIUM 3.5 mmol/L (3.5-5.1); TOT PROT 6.8 g/dl (6.4-8.2)
[2019-05-24 13:15] LABS: EPI CELLS 11.7 /HPF (0-5/HPF); HYALINE CASTS 10 /lpf (0-8); URINE APPEARANCE CLEAR; URINE BACTERIA 432.9 /hpf (NEGATIVE); URINE BILIRUBIN NEGATIVE (NEGATIVE); URINE COLOR YELLOW; URINE GLUCOSE (UA) NEGATIVE (NEGATIVE); URINE KETONE NEGATIVE (NEGATIVE); URINE LEUK ESTERASE TRACE (NEGATIVE); URINE NITRITE NEGATIVE (NEGATIVE); URINE PROTEIN NEGATIVE (NEGATIVE); URINE RBC 1 /hpf (0-4); URINE UROBILINOGEN 0.2 mg/dL (0.2-1.0); URINE WBC 14 /hpf (0-5)
[2019-05-24 13:57] LABS: URINE CRYSTALS POSITIVE /hpf
[2019-05-24] MEDS ORDERED: THIAMINE HCL 100 MG TABLET (FP) PO SCH (22:00)
[2019-05-25] MEDS ORDERED: METHADONE (DETOX) 20 MG, METHADONE (DETOX) 5 MG PO ONE (10:00)
[2019-05-25] MEDS ORDERED: METHADONE HCL 10 MG TABLET (FOR DETOX USE ONLY) PO ONE (10:00)
[2019-05-26] MEDS ORDERED: METHADONE (DETOX) 10 MG, METHADONE (DETOX) 5 MG PO ONE (10:00)
[2019-05-26] MEDS ORDERED: METHADONE HCL 10 MG TABLET (FOR DETOX USE ONLY) PO ONE (10:00)
[2019-05-27] MEDS ORDERED: METHADONE (DETOX) 10 MG, METHADONE (DETOX) 5 MG PO ONE (10:00)
[2019-05-27] MEDS ORDERED: METHADONE HCL 10 MG TABLET (FOR DETOX USE ONLY) PO ONE (10:00)
[2019-05-28] MEDS ORDERED: METHADONE HCL 5 MG TABLET (FOR DETOX USE ONLY) PO ONE (06:00)
[2019-05-28] MEDS ORDERED: METHADONE HCL 10 MG TABLET (FOR DETOX USE ONLY) PO ONE (10:00)
[2019-05-29] MEDS ORDERED: METHADONE HCL 5 MG TABLET (FOR DETOX USE ONLY) PO ONE (06:00)
== END 2019-05-24 11:56 | disposition left against medical advice (07) | DRG 770 ==
LOC: YASAS 19:04 → Y3N 23:29
PROVIDERS: ADMIT Allergy & Immunology; ATTEND Allergy & Immunology
PROC: HZ2ZZZZ Detoxification Services for Substance Abuse Treatment (ICD-10-PCS; principal; 2019-05-23)
DX: F11.23 Opioid dependence with withdrawal (principal); F14.20 Cocaine dependence, uncomplicated; F17.210 Nicotine dependence, cigarettes, uncomplicated; F19.282 Other psychoactive substance dependence with psychoactive substance-induced sleep disorder; F19.24 Other psychoactive substance dependence with psychoactive substance-induced mood disorder; J45.22 Mild intermittent asthma with status asthmaticus; Z87.19 Personal history of other diseases of the digestive system; Z91.14 Patient's other noncompliance with medication regimen; Z91.018 Allergy to other foods; Z88.8 Allergy status to other drugs, medicaments and biological substances; Z59.0 Homelessness
CPT/HCPCS: 36415; 80053; 81003; 81025; 85027; 86593; Q0162

== ENCOUNTER 2019-06-20 22:20 | Inpatient (IN) | payer OTHER ==
[2019-06-20 23:13] VITALS: BMI 21.6
--- NOTE | 2019-06-20 23:42 | HP ---
COWS - Scale Resting Pulse: 1= [place] 81-100 Sweatin=Flushed/Facial Moisture Restless Observation: 1= Difficult to Sit Still Pupil Size: 0= Normal to Room Light Bone or Joint Aches: 4=Acute Joint/Muscle Pain Runny Nose/ Eye Tearin= Nasal Congestion GI Upset > 30mins: 0= None Tremor Observation: 0= None Yawning Observation: 1= 1-2x During Session Anxiety or Irritability: 2=Irritable/Anxious Goose Flesh Skin: 0=Smooth Skin COWS Score: 12 CIWA Score - Admission Criteria OASAS Guidelines: Admission for Medically Managed Detox: Requires at least one of the followin. CIWA greater than 12 2. Seizures within the past 24 hours 3. Delirium tremens within the past 24 hours 4. Hallucinations within the past 24 hours 5. Acute intervention needed for co occurring medical disorder 6. Acute intervention needed for co occurring psychiatric disorder 7. Severe withdrawal that cannot be handled at a lower level of care (continued vomiting, continued diarrhea, abnormal vital signs) requiring intravenous medication and/or fluids 8. Admitting History and Physical - Past Medical History ...LMP: 02/05/18 - Smoking History Smoking history: Current every day smoker Have you smoked in the past 12 months: Yes Aproximately how many cigarettes per day: 5 - Alcohol/Substance Use Hx Alcohol Use: Yes Admission ROS [facility] Chief Complaint: seeking heroin detox Allergies/Adverse Reactions: Allergies Allergy/AdvReac Type Severity Reaction Status Date / Time Rho(D) immune globulin Allergy Severe Rash Verified 06/20/19 22:44 [From RhoGam] mushroom Allergy Intermediate Vomiting Verified 06/20/19 22:44 History of Present Illness: here for heroin detox. client is self referred. known to program . last here 05/24/2019 signed out ama because "I am not ready". reports relapsing 1 day after. she reports daily use of 30 bags via iv. last use this afternoon. used about 2 bags today. now presents with withdrawal sx's. denies hx/o drug overdose, + blackouts denies seizures. reports longest clean time 10 months. relapsing 2017. homeless, unemployed, denies legals - Ebola screening Have you traveled outside of the country in the last 21 days: No (N) Have you had contact with anyone from an Ebola affected area: No Do you have a fever: No - Review of Systems Constitutional: Chills, Malaise, Night Sweats EENT: reports: Nose Congestion (runny nose), Dental Problems (missing teeth) Respiratory: reports: Shortness of Breath Cardiac: reports: No Symptoms Reported GI: reports: Diarrhea : reports: No Symptoms Reported Musculoskeletal: reports: Back Pain, Joint Pain Integumentary: reports: Sweating (cold sweats), Other (track lockhart) Neuro: reports: No Symptoms reported Endocrine: reports: No Symptoms Reported Hematology: reports: No Symptoms Reported Psychiatric: reports: Orientated x3, Agitated (irritable), Depressed (denies si) Other Systems: Reviewed and Negative Patient History - Patient Medical History Hx Anemia: No Hx Asthma: Yes Hx Chronic Obstructive Pulmonary Disease (COPD): No Hx Cancer: No Hx Cardiac Disorders: No Hx Congestive Heart Failure: No Hx Hypertension: No Hx Hypercholesterolemia: No Hx Pacemaker: No HX Cerebrovascular Accident: No Hx Seizures: No Hx Dementia: No Hx Diabetes: No Hx Gastrointestinal Disorders: No Hx Liver Disease: No Hx Genitourinary Disorders: No Hx Sexually Transmitted Disorders: No Hx Renal Disease (ESRD): No Hx Thyroid Disease: No Hx Human Immunodeficiency Virus (HIV): No Hx Hepatitis C: No Hx Depression: Yes Hx Suicide Attempt: No Hx Bipolar Disorder: No Hx Schizophrenia: No - Patient Surgical History Past Surgical History: Yes Hx Neurologic Surgery: No Hx Cataract Extraction: No Hx Cardiac Surgery: No Hx Lung Surgery: No Hx Breast Surgery: Yes ([facility]-2007) Hx Breast Biopsy: No Hx Abdominal Surgery: No Hx Appendectomy: No Hx Cholecystectomy: No Hx Genitourinary Surgery: No Hx Section: No Hx Orthopedic Surgery: No Anesthesia Reaction: No - PPD History Previous Implant?: Yes Documented Results: Negative w/proof Implanted On Prior R Admission?: Yes Date: 11/08/17 Results: 0MM PPD to be Administered?: Yes - Reproductive History Patient is a Female of Child Bearing Age (11 -55 yrs old): Yes Last Menstrual Period: 02/05/18 [place] [facility] [place] - Smoking Cessation Smoking history: Current every day smoker Have you smoked in the past 12 months: Yes Aproximately how many cigarettes per day: 5 Cigars Per Day: 0 Hx Chewing Tobacco Use: No Initiated information on smoking cessation: Yes 'Breaking Loose' booklet given: 06/20/19 - Substance & Tx. History Hx Alcohol Use: No Hx Substance Use: Yes Substance Use Type: Cocaine, Heroin Hx Substance Use Treatment: Yes ([facility]) - Substances abused Heroin Substance route: Injection Frequency: Daily Amount used: 25-30 bags Age of first use: 23 Date of last use: 06/20/19 Crack Substance route: Smoking Frequency: Daily Amount used: 4grams Age of first use: 26 Date of last use: 06/20/19 Cocaine Substance route: Injection Frequency: 1-2 times per week Amount used: $50/day Age of first use: 28 Date of last use: 05/16/19 Admission Physical Exam [facility] - Vital Signs Vital Signs: Vital Signs - 24 hr 06/20/19 22:38 Temperature 97.5 F L Pulse Rate 88 Respiratory 18 Rate Blood Pressure 118/78 - Physical General Appearance: Yes: Mild Distress, Tremorous, Irritable, Anxious HEENTM: Yes: EOMI, Normocephalic, Normal Voice, TAMICA, Pharynx Normal, Nasal Congestion, Rhinorrhea, Other (missing teeth) Respiratory: Yes: Chest Non-Tender, Lungs Clear, Normal Breath Sounds, No Respiratory Distress, No Accessory Muscle Use Neck: Yes: No masses,lesions,Nodules, Supple, Trachea in good position Breast: Yes: Breasts Symetrical, Other (nipple piercings) Cardiology: Yes: Regular Rhythm, Regular Rate Abdominal: Yes: Normal Bowel Sounds, Non Tender, Soft Genitourinary: Yes: Within Normal Limits Back: Yes: Normal Inspection Extremities: Yes: Normal Capillary Refill, Non-Tender, Tremors, Other (track lockhart to arms and hands) Neurological: Yes: Fully Oriented, Alert, Motor Strength 5/5, Depressed Affect Integumentary: Yes: Dry, Warm, Track Lockhart Lymphatic: Yes: Within Normal Limits - Diagnostic (1) Non-compliance with treatment Current Visit: Yes Status: Acute (2) Cocaine dependence, uncomplicated Current Visit: No Status: Acute (3) Homeless Current Visit: No Status: Acute (4) IVDU (intravenous drug user) Current Visit: No Status: Acute (5) Nicotine dependence Current Visit: No Status: Acute Qualifiers: (6) Non compliance w medication regimen Current Visit: Yes Status: Acute (7) Opioid dependence with withdrawal Current Visit: Yes Status: Acute (8) Psychotic disorder Current Visit: Yes Status: Acute (9) Track lockhart due to intravenous drug abuse Current Visit: Yes Status: Acute (10) Asthma Current Visit: Yes Status: Chronic Qualifiers: Asthma severity: mild Asthma persistence: intermittent Asthma complication type: uncomplicated Qualified Code(s): J45.20 - Mild intermittent asthma, uncomplicated (11) Diverticulitis Current Visit: Yes Status: Chronic (12) Substance induced mood disorder Current Visit: Yes Status: Suspected Cleared for Admission S - Detox or Rehab [facility] Level of Care: Medically Managed Detox Regimen/Protocol: Methadone Claeared for Rehab Admission: No Breathalyzer - Breathalyzer Breathalyzer: 0 Urine Drug Screen - Test Device Lot number: [id number] Expiration date: 01/21/21 - Control Is test valid?: Yes - Results Drug screen NEGATIVE: No Urine drug screen results: KOFFI-Cocaine, FEN-Fentanyl, MOP-Opiates Inpatient Rehab Admission - Rehab Decision to Admit Inpatient rehab admission?: No
[2019-06-20] MEDS ORDERED: MENTHOL/PHENOL 1 EACH UD MM PRN (23:54)
[2019-06-20] MEDS ORDERED: guaiFENesin 200 MG/10 ML 10 ML UNIT-DOSE CUPS PO PRN (23:54)
[2019-06-20] MEDS ORDERED: P-EPHED 60MG/TRIPROLIDI 2.5MG TABLET PO PRN (23:54)
[2019-06-20] MEDS ORDERED: DICYCLOMINE HCL 10 MG CAPSULE PO PRN (23:54)
[2019-06-20] MEDS ORDERED: MAG HYDROX/AL HYDROX/SIMETH 30 ML UNIT-DOSE CUP PO PRN (23:54)
[2019-06-20] MEDS ORDERED: BISMUTH SUBSALICYLATE 524 MG/30 ML UD PO PRN (23:54)
[2019-06-20] MEDS ORDERED: MELATONIN 5 MG TABLETS PO PRN (23:54)
[2019-06-20] MEDS ORDERED: NICOTINE POLACRILEX 2 MG GUM BUC PRN (23:54)
[2019-06-20] MEDS ORDERED: hydrOXYzine PAMOATE 25 MG CAPSULE (FP) PO PRN (23:54)
[2019-06-20] MEDS ORDERED: MAGNESIUM CITRATE 300 ML BOTTLE PO PRN (23:54)
[2019-06-20] MEDS ORDERED: ACETAMINOPHEN 325 MG TABLET (FP) PO PRN ×2 (23:54)
[2019-06-20] MEDS ORDERED: MAGNESIUM HYDROX 2400MG/30ML ORAL SUSPENSION 30 ML CUP PO PRN (23:54)
[2019-06-20] MEDS ORDERED: ONDANSETRON *ODT* 4 MG TABLET SL PRN (23:54)
[2019-06-21] MEDS ORDERED: METHADONE HCL 10 MG TABLET (FOR DETOX USE ONLY) PO ONE (00:01)
[2019-06-21] MEDS ORDERED: cloNIDine HCL 0.1 MG TABLET PO PRN (00:01)
[2019-06-21] MEDS: IBUPROFEN 400 MG TABLET (FP) PO PRN ×2 (00:49→15:24)
[2019-06-21] MEDS ORDERED: ALBUTEROL SO4 8 GM HFA INHALER IH ONE (08:56)
[2019-06-21 09:21] LABS: HEMATOCRIT 42.2 % (32.4-45.2); HEMOGLOBIN 13.8 GM/dL (10.7-15.3); MCH 27.6 pg (25.7-33.7); MCHC 32.7 g/dl (32.0-36.0); MEAN CELL VOLUME 84.6 fl (80-96); MEAN PLT VOLUME 8.7 fl (7.5-11.1); PLATELET COUNT 219 K/MM3 (134-434); RBC 4.99 M/mm3 (3.60-5.2); RDW 13.1 % (11.6-15.6); WHITE BLOOD COUNT 5.9 K/mm3 (4.0-10.0)
[2019-06-21 09:30] LABS: ALBUMIN 3.4 g/dl (3.4-5.0); BILIRUBIN,TOTAL 0.3 mg/dL (0.2-1); CALCIUM 8.9 mg/dL (8.5-10.1); CREATININE 0.8 mg/dL (0.55-1.3); POTASSIUM 3.9 mmol/L (3.5-5.1); TOT PROT 7.2 g/dl (6.4-8.2)
[2019-06-21] MEDS ORDERED: ALBUTEROL SO4 8 GM HFA INHALER IH PRN (09:43)
[2019-06-21] MEDS ORDERED: ALBUTEROL SO4 0.083% IH SOL 2.5 MG/3 ML VIAL.NEB. NEB PRN (09:44)
--- NOTE | 2019-06-21 09:49 | PN ---
[facility] COWS - Scale Resting Pulse: 2= [place] 101-120 Sweatin= Chills/Flushing Restless Observation: 0= Sits Still Pupil Size: 2= Moderately Dilated Bone or Joint Aches: 0= None Runny Nose/ Eye Tearin= None GI Upset > 30mins: 0= None Tremor Observation of Outstretched Hands: 1= Tremor [place], Not Seen Yawning Observation: 0= None Anxiety or Irritability: 2=Irritable/Anxious Goose Flesh Skin: 3=Piloerection COWS Score: 11 [facility] Progress Note (SOAP) Subjective: 28 years old female admitted on 06/20/19 for opiate withdrawal sx management treating with methadone detox regimen feeling anxious long history of asthma treated with ventolin and symbical and nebulizer at home begin ventolin rescue pump and nebulizer and symbical bid Objective: 06/21/19 09:47 Vital Signs Temperature 96.8 F L 06/21/19 09:10 Pulse Rate 103 H 06/21/19 09:10 Respiratory Rate 20 06/21/19 09:10 Blood Pressure 106/66 06/21/19 09:10 O2 Sat by Pulse Oximetry (%) Laboratory Last Values WBC 5.9 K/mm3 (4.0-10.0) 06/21/19 07:20 RBC 4.99 M/mm3 (3.60-5.2) 06/21/19 07:20 Hgb 13.8 GM/dL (10.7-15.3) 06/21/19 07:20 Hct 42.2 % (32.4-45.2) 06/21/19 07:20 MCV 84.6 fl (80-96) 06/21/19 07:20 MCH 27.6 pg (25.7-33.7) 06/21/19 07:20 MCHC 32.7 g/dl (32.0-36.0) 06/21/19 07:20 RDW 13.1 % (11.6-15.6) 06/21/19 07:20 Plt Count 219 K/MM3 (134-434) 06/21/19 07:20 MPV 8.7 fl (7.5-11.1) 06/21/19 07:20 Sodium 142 mmol/L (136-145) 06/21/19 07:20 Potassium 3.9 mmol/L (3.5-5.1) 06/21/19 07:20 Chloride 109 mmol/L (98-107) H 06/21/19 07:20 Carbon Dioxide 28 mmol/L (21-32) 06/21/19 07:20 Anion Gap 4 MMOL/L (8-16) L 06/21/19 07:20 BUN 16.0 mg/dL (7-18) 06/21/19 07:20 Creatinine 0.8 mg/dL (0.55-1.3) 06/21/19 07:20 Est GFR (CKD-EPI)AfAm 114.66 06/21/19 07:20 Est GFR (CKD-EPI)NonAf 98.93 06/21/19 07:20 Random Glucose 89 mg/dL (74-106) 06/21/19 07:20 Calcium 8.9 mg/dL (8.5-10.1) 06/21/19 07:20 Total Bilirubin 0.3 mg/dL (0.2-1) 06/21/19 07:20 AST 25 U/L (15-37) 06/21/19 07:20 ALT 45 U/L (13-61) 06/21/19 07:20 Alkaline Phosphatase 94 U/L (45-117) 06/21/19 07:20 Total Protein 7.2 g/dl (6.4-8.2) 06/21/19 07:20 Albumin 3.4 g/dl (3.4-5.0) 06/21/19 07:20 lab noted anxiety lung clear no wheezing but feeling chest tightness skin warm brisk capillary refilled moist lips and pink Assessment: opiate withdrawal Plan: methadone regimen
[2019-06-21] MEDS ORDERED: METHADONE HCL 5 MG TABLET (FOR DETOX USE ONLY) PO ONE (10:00)
[2019-06-21] MEDS: PRENATAL VITAMINS W/ FOLIC ACID TABLET (FP) PO SCH (10:06)
[2019-06-21] MEDS: NICOTINE 14 MG/24 HOURS TOPICAL PATCH TD SCH (10:06)
[2019-06-21] MEDS: BUDESONIDE/FORMETEROL FUMARATE 160/4.5 mcg INHALER IH SCH ×2 (10:50→22:12)
--- NOTE | 2019-06-21 14:48 | CONSULT ---
[facility] Psychiatric Consult - Data Date of interview: 06/21/19 Admission source: [facility] Identifying data: Management Manager approached patient twice for psychiatric consultation. Patient stated "i'm not feeling well. Maybe we can speak tomorrow." Psychiatric consultation refused. Please reorder psychiatric consultation if requested by patient.
--- NOTE | 2019-06-21 15:14 | EKG ---
Test Reason : Blood Pressure : / mmHG Vent. Rate : 069 BPM Atrial Rate : 069 BPM P-R Int : 146 ms QRS Dur : 088 ms QT Int : 430 ms P-R-T Axes : 076 058 054 degrees QTc Int : 460 ms NORMAL SINUS RHYTHM WITH SINUS ARRHYTHMIA NORMAL ECG WHEN COMPARED WITH ECG OF 31-OCT-2017 21:26, NO SIGNIFICANT CHANGE WAS FOUND Confirmed by MD ASHLYN, VIAT ([id number]) on 06/21/2019 3:14:13 PM Referred By: Cam Cesar Confirmed By:VITA GOLDBERG MD
[2019-06-21] MEDS ORDERED: THIAMINE HCL 100 MG TABLET (FP) PO SCH (22:00)
[2019-06-21] MEDS: METHOCARBAMOL 500 MG TABLET PO PRN (22:12)
[2019-06-21 22:36] LABS: PH,URINE 8.5 (5.0-8.0); URINE APPEARANCE TURBID; URINE BILIRUBIN NEGATIVE (NEGATIVE); URINE COLOR YELLOW; URINE GLUCOSE (UA) NEGATIVE (NEGATIVE); URINE KETONE NEGATIVE (NEGATIVE); URINE LEUK ESTERASE NEGATIVE (NEGATIVE); URINE NITRITE NEGATIVE (NEGATIVE); URINE PROTEIN NEGATIVE (NEGATIVE); URINE UROBILINOGEN 0.2 mg/dL (0.2-1.0)
[2019-06-22] MEDS: IBUPROFEN 400 MG TABLET (FP) PO PRN ×2 (00:30→07:49)
[2019-06-22] MEDS ORDERED: hydrOXYzine PAMOATE 25 MG CAPSULE (FP) PO PRN (00:54)
[2019-06-22] MEDS ORDERED: METHADONE HCL 10 MG TABLET (FOR DETOX USE ONLY) PO ONE (02:00)
[2019-06-22] MEDS: METHOCARBAMOL 500 MG TABLET PO PRN (07:49)
[2019-06-22 09:04] VITALS: BP 110/80; PULSE 93; TEMP 97.4
[2019-06-22] MEDS ORDERED: METHADONE HCL 5 MG TABLET (FOR DETOX USE ONLY) ONE (09:28)
[2019-06-22] MEDS ORDERED: METHADONE HCL 10 MG TABLET (FOR DETOX USE ONLY) ONE (09:28)
[2019-06-22] MEDS ORDERED: METHADONE (DETOX) 20 MG, METHADONE (DETOX) 5 MG PO ONE (10:00)
[2019-06-22] MEDS: PRENATAL VITAMINS W/ FOLIC ACID TABLET (FP) PO SCH (11:02)
[2019-06-22] MEDS: NICOTINE 14 MG/24 HOURS TOPICAL PATCH TD SCH (11:02)
[2019-06-22] MEDS: BUDESONIDE/FORMETEROL FUMARATE 160/4.5 mcg INHALER IH SCH (11:03)
--- NOTE | 2019-06-22 15:08 | DS ---
[facility] Detox Discharge Summary Admission Date: 06/20/19 Discharge Date: 06/22/19 - History Present History: Opioid Dependence Additional Comments: 28 years old female admitted on 06/20/19 for opiate withdrawal sx management treated with methadone detox regimen patient tolerated well alert oriented x 3 ambulating steady gait speech clear coherent case discussed with the nurse against medical advice is appropriated Pertinent Past History: patient insists to leave the detox unit that opiate detox is not for her that the methadone dosage getting too low discuss medication assisted treatment program patient shows no interesting - Physical Exam Results Vital Signs: Vital Signs Temperature 97.4 F L 06/22/19 09:04 Pulse Rate 93 H 06/22/19 09:04 Respiratory Rate 18 06/22/19 09:04 Blood Pressure 110/80 06/22/19 09:04 O2 Sat by Pulse Oximetry (%) Pertinent Admission Physical Exam Findings: opiate withdrawal Laboratory Last Values WBC 5.9 K/mm3 (4.0-10.0) 06/21/19 07:20 RBC 4.99 M/mm3 (3.60-5.2) 06/21/19 07:20 Hgb 13.8 GM/dL (10.7-15.3) 06/21/19 07:20 Hct 42.2 % (32.4-45.2) 06/21/19 07:20 MCV 84.6 fl (80-96) 06/21/19 07:20 MCH 27.6 pg (25.7-33.7) 06/21/19 07:20 MCHC 32.7 g/dl (32.0-36.0) 06/21/19 07:20 RDW 13.1 % (11.6-15.6) 06/21/19 07:20 Plt Count 219 K/MM3 (134-434) 06/21/19 07:20 MPV 8.7 fl (7.5-11.1) 06/21/19 07:20 Sodium 142 mmol/L (136-145) 06/21/19 07:20 Potassium 3.9 mmol/L (3.5-5.1) 06/21/19 07:20 Chloride 109 mmol/L (98-107) H 06/21/19 07:20 Carbon Dioxide 28 mmol/L (21-32) 06/21/19 07:20 Anion Gap 4 MMOL/L (8-16) L 06/21/19 07:20 BUN 16.0 mg/dL (7-18) 06/21/19 07:20 Creatinine 0.8 mg/dL (0.55-1.3) 06/21/19 07:20 Est GFR (CKD-EPI)AfAm 114.66 06/21/19 07:20 Est GFR (CKD-EPI)NonAf 98.93 06/21/19 07:20 Random Glucose 89 mg/dL (74-106) 06/21/19 07:20 Calcium 8.9 mg/dL (8.5-10.1) 06/21/19 07:20 Total Bilirubin 0.3 mg/dL (0.2-1) 06/21/19 07:20 AST 25 U/L (15-37) 06/21/19 07:20 ALT 45 U/L (13-61) 06/21/19 07:20 Alkaline Phosphatase 94 U/L (45-117) 06/21/19 07:20 Total Protein 7.2 g/dl (6.4-8.2) 06/21/19 07:20 Albumin 3.4 g/dl (3.4-5.0) 06/21/19 07:20 Urine Color Yellow 06/21/19 15:27 Urine Appearance Turbid 06/21/19 15:27 Urine pH 8.5 (5.0-8.0) H D 06/21/19 15:27 Ur Specific [place] 1.014 (1.010-1.035) 06/21/19 15:27 Urine Protein Negative (NEGATIVE) 06/21/19 15:27 Urine Glucose (UA) Negative (NEGATIVE) 06/21/19 15:27 Urine Ketones Negative (NEGATIVE) 06/21/19 15:27 Urine Blood Negative (NEGATIVE) 06/21/19 15:27 Urine Nitrite Negative (NEGATIVE) 06/21/19 15:27 Urine Bilirubin Negative (NEGATIVE) 06/21/19 15:27 Urine Urobilinogen 0.2 mg/dL (0.2-1.0) 06/21/19 15:27 Ur Leukocyte Esterase Negative (NEGATIVE) 06/21/19 15:27 POC Urine HCG, Qual Negative 06/21/19 15:27 lab noted - Treatment Hospital Course: Detox Protocol Followed, Discharged Condition Good Patient has Accepted a Rehab Referral to: community support approach - Medication Discharge Medications: Ambulatory Orders Albuterol Sulfate Inhaler - [Ventolin HFA Inhaler -] 1 - 2 inh PO QID 10/31/17 Albuterol 2.5/Ipratropium 0.5 [Duoneb -] 1 neb NEB Q4H #1 amp 04/11/18 Budesonide/Formeterol Fumarate [SYMBICORT 160/4.5mcg -] 1 inh PO BID #1 inhaler 04/11/18 Naloxone HCl [Narcan] 4 mg NS ASDIR PRN #1 spray 06/21/19 - Diagnosis (1) Nicotine dependence Status: Acute Qualifiers: Nicotine product type: cigarettes Substance use status: in withdrawal Qualified Code(s): F17.213 - Nicotine dependence, cigarettes, with withdrawal (2) Opioid dependence with withdrawal Status: Acute (3) Asthma Status: Chronic Qualifiers: Asthma severity: mild Asthma persistence: intermittent Asthma complication type: uncomplicated Qualified Code(s): J45.20 - Mild intermittent asthma, uncomplicated (4) Nicotine abuse Status: Acute (5) Substance induced mood disorder Status: Suspected - AMA Did Patient Leave Against Medical Advice: Yes
[2019-06-23] MEDS ORDERED: METHADONE HCL 10 MG TABLET (FOR DETOX USE ONLY) PO ONE (10:00)
[2019-06-24] MEDS ORDERED: METHADONE (DETOX) 10 MG, METHADONE (DETOX) 5 MG PO ONE (10:00)
[2019-06-25] MEDS ORDERED: METHADONE HCL 10 MG TABLET (FOR DETOX USE ONLY) PO ONE (10:00)
[2019-06-26] MEDS ORDERED: METHADONE HCL 5 MG TABLET (FOR DETOX USE ONLY) PO ONE (06:00)
== END 2019-06-22 09:25 | disposition left against medical advice (07) | DRG 770 ==
LOC: YASAS 22:20 → Y3N 23:51
PROVIDERS: ADMIT Allergy & Immunology; ATTEND Allergy & Immunology
PROC: HZ2ZZZZ Detoxification Services for Substance Abuse Treatment (ICD-10-PCS; principal; 2019-06-20)
DX: F11.23 Opioid dependence with withdrawal (principal); F14.20 Cocaine dependence, uncomplicated; F17.213 Nicotine dependence, cigarettes, with withdrawal; F19.24 Other psychoactive substance dependence with psychoactive substance-induced mood disorder; F99 Mental disorder, not otherwise specified; J45.20 Mild intermittent asthma, uncomplicated; Z91.14 Patient's other noncompliance with medication regimen; Z59.0 Homelessness
CPT/HCPCS: 36415; 80053; 81003; 81025; 85027; 93005; 93010; J0735